=== PATIENT | male | born 1930 | race Caucasian/White ===

== ENCOUNTER 2016-05-02 11:41 | Inpatient (IN) | payer MEDICARE, BC ==
[2016-05-02] VITALS (7 sets, daily range): BP systolic 110–156; BP diastolic 72–93; PULSE 80–96; RESP 16–20; TEMP 97.7–97.8; O2SAT 95–100
[~2016-05-02] VITALS: Ht 182.9 cm; Wt 79.3 kg
[~2016-05-02 11:41] MED LIST: MSIR15 PO; TOPI50TA4 PO; ULTR50TA PO; WARF5TAB PO
[2016-05-02] MEDS ORDERED: HYDR-3535 PO (12:15)
[2016-05-02] MEDS ORDERED: MSIR15 PO (12:15)
[2016-05-02] MEDS ORDERED: FLUO10CA5 PO (12:15)
[2016-05-02] MEDS ORDERED: TOPA50TA7 PO (12:15)
--- NOTE | 2016-05-02 12:22 | PD ---
HPI Chief Complaint: Fall Time Seen by Provider: 12:19 Travel History International Travel<30 days: No Contact w/Intl Traveler<30days: No Traveled to known affect area: No History of Present Illness HPI Patient is an 85-year-old male who presented to emergency department with his for evaluation of a contusion to his left forehead. states that he fell this morning. She states that he is a history of dementia and falls frequently. She reports increased confusion over the last several days. Patient has not vomited. Patient was on Coumadin but that was discontinued 2-3 weeks ago per her report. It is uncertain whether patient lost consciousness after the fall. PFSH Past Medical History Arthritis: Yes Blood Disorders: No Anxiety: No Depression: No Cancer: No Cardiovascular Problems: Yes (PACEMAKER ([employer])) High Cholesterol: Yes Chest Pain: Yes Congestive Heart Failure: No COPD: No Cerebrovascular Accident: Yes Dementia: Yes Diabetes: No Diminished Hearing: No Endocrine: No Gastrointestinal Disorders: Yes (OCC GERD) GERD: Yes Genitourinary: No Headaches: Yes Hepatitis: No Hiatal Hernia: No Immune Disorder: No Musculoskeletal: Yes (ARTHRITIS, BACK, CHRONIC SHOULDER/NECK/SCAPULAR PAIN, DEGENERATIVE DISC DIS) Neurologic: Yes (DIZZINESS, CHRONIC HEADACHE) Psychiatric: No Reproductive: No Respiratory: No Immunizations Current: Yes Migraines: No Seizures: No Sleep Apnea: No Thyroid Disease: No Ulcer: No Tetanus Vaccination: < 5 Years ?: Not Past Surgical History Abdominal Surgery: No AICD: No Body Medical Devices: N/A Cardiac Surgery: Yes (CARDIAC CATH, PACEMAKER) Ear Surgery: No Endocrine Surgery: No Eye Surgery: Yes (BILAT CATARACT EXTRACT.) Genitourinary Surgery: No Joint Replacement: Yes (LEFT SHOULDER) Oral Surgery: Yes (TONSILLECTOMY) Pacemaker: Yes (MEDTRONIC) Thoracic Surgery: Yes Tonsillectomy: Yes Other Surgery: Yes (SINUS ) Social History Alcohol Use: Yes (cocktail DAILY) Tobacco Use: No Substance Use: No Allergies-Medications (Allergen,Severity, Reaction): Coded Allergies: No Known Allergies (Verified , 05/02/16) Reported Meds & Prescriptions Reported Meds & Active Scripts Active Reported Lortab (Hydrocodone-Acetaminophen) 10-325 Mg Tab 1 Tab PO BID PRN Fluoxetine (Fluoxetine HCl) 10 Mg Cap 10 Mg PO DAILY Topamax (Topiramate) 50 Mg Tab 50 Mg PO TID Morphine IR (Morphine Sulfate) 15 Mg Tab 15 Mg PO TID PRN Review of Systems ROS Limitations: Poor Historian Except as stated in HPI: all other systems reviewed are Neg Skin: Positive Other (contusion to forehead) Neurologic: Positive: Other (dementia) Physical Exam Narrative GENERAL: Well-developed, well-nourished, elderly male. Resting comfortably in no acute distress. SKIN: Warm and dry. HEAD: Contusion to left forehead over left eyebrow. Normocephalic. EYES: Pupils equal and round. No scleral icterus. No injection or drainage. Extraocular movements are intact. ENT: No nasal bleeding or discharge. Mucous membranes pink and moist. NECK: Trachea midline. No JVD. CARDIOVASCULAR: Regular rate and rhythm. 2/6 systolic murmur. No peripheral edema noted. RESPIRATORY: No accessory muscle use. Clear to auscultation. Breath sounds equal bilaterally. GASTROINTESTINAL: Abdomen soft, non-tender, nondistended. Hepatic and splenic margins not palpable. MUSCULOSKELETAL: No obvious deformities. No clubbing. No cyanosis. No edema. NEUROLOGICAL: Awake and alert. Oriented to self only. No obvious cranial nerve deficits. Motor grossly within normal limits. Normal speech. PSYCHIATRIC: Appropriate mood and affect; insight and judgment impaired. Data Data Last Documented VS Vital Signs Date Time Temp Pulse Resp B/P Pulse Ox O2 Delivery O2 Flow Rate FiO2 05/02/16 13:54 91 18 144/89 98 Room Air 05/02/16 11:52 97.7 Orders Electrocardiogram (05/02/16 12:16) Prothrombin Time / Inr (Pt) (05/02/16 12:16) Act Partial Throm Time (Ptt) (05/02/16 12:16) Complete Blood Count With Diff (05/02/16 12:16) Comprehensive Metabolic Panel (05/02/16 12:16) Urinalysis - C+S If Indicated (05/02/16 12:16) Ct Brain W/O Iv Contrast(Rout) (05/02/16 12:16) Ecg Monitoring (05/02/16 12:16) Iv Access Insert/Monitor (05/02/16 12:16) Oximetry (05/02/16 12:16) Cath For Specimen (05/02/16 12:16) Blood Glucose (05/02/16 12:16) Neuro Checks . ORDERED (05/02/16 13:53) Consult Neurosurgery (05/02/16 ) Admit To Inpatient (05/02/16 ) Vital Signs (Adult) Q4H (05/02/16 14:02) Activity Oob With Assistance (05/02/16 14:02) Intake + Output URI.QSHIFT (05/02/16 14:02) Diet Heart Healthy (05/02/16 Dinner) Sodium Chloride 0.9% Flush (Ns Flush) (05/02/16 14:15) Sodium Chloride 0.9% Flush (Ns Flush) (05/02/16 21:00) Acetaminophen (Tylenol) (05/02/16 14:15) Ondansetron Inj (Zofran Inj) (05/02/16 14:15) Bisacodyl Supp (Dulcolax Supp) (05/02/16 14:15) Docusate Sodium (Colace) (05/02/16 14:15) Basic Metabolic Panel (Bmp) (05/03/16 06:00) Scd Bilateral/Knee High URI.BID (05/02/16 14:02) Naloxone Inj (Narcan Inj) (05/02/16 14:15) Inpatient Certification (05/02/16 ) Admit Order (Ed Use Only) (05/02/16 14:06) Labs Laboratory Tests Test 05/02/16 05/02/16 12:43 12:50 White Blood Count 8.0 TH/MM3 Red Blood Count 4.03 MIL/MM3 Hemoglobin 13.1 GM/DL Hematocrit 39.0 % Mean Corpuscular Volume 96.9 FL Mean Corpuscular Hemoglobin 32.6 PG Mean Corpuscular Hemoglobin 33.7 % Concent Red Cell Distribution Width 13.6 % Platelet Count 171 TH/MM3 Mean Platelet Volume 7.0 FL Neutrophils (%) (Auto) 67.8 % Lymphocytes (%) (Auto) 22.3 % Monocytes (%) (Auto) 8.1 % Eosinophils (%) (Auto) 1.1 % Basophils (%) (Auto) 0.7 % Neutrophils # (Auto) 5.4 TH/MM3 Lymphocytes # (Auto) 1.8 TH/MM3 Monocytes # (Auto) 0.6 TH/MM3 Eosinophils # (Auto) 0.1 TH/MM3 Basophils # (Auto) 0.1 TH/MM3 CBC Comment DIFF FINAL Differential Comment Prothrombin Time 12.1 SEC Prothromb Time International 1.1 RATIO Ratio Activated Partial 29.0 SEC Thromboplast Time Sodium Level 142 MEQ/L Potassium Level 3.8 MEQ/L Chloride Level 110 MEQ/L Carbon Dioxide Level 21.5 MEQ/L Anion Gap 11 MEQ/L Blood Urea Nitrogen 11 MG/DL Creatinine 0.92 MG/DL Estimat Glomerular Filtration 78 ML/MIN Rate Random Glucose 79 MG/DL Calcium Level 8.1 MG/DL Total Bilirubin 0.4 MG/DL Aspartate Amino Transf 33 U/L (AST/SGOT) Alanine Aminotransferase 24 U/L (ALT/SGPT) Alkaline Phosphatase 124 U/L Total Protein 7.8 GM/DL Albumin 3.4 GM/DL Urine Color YELLOW Urine Turbidity CLEAR Urine pH 6.0 Urine Specific [place] 1.012 Urine Protein NEG mg/dL Urine Glucose (UA) NEG mg/dL Urine Ketones NEG mg/dL Urine Occult Blood TRACE Urine Nitrite NEG Urine Bilirubin NEG Urine Leukocyte Esterase NEG Urine RBC 0-3 /hpf Urine WBC 0-2 /hpf Urine Mucus RARE /lpf Microscopic Urinalysis Comment CATH-CULT NOT IND MDM Medical Decision Making Medical Screen Exam Complete: Yes Emergency Medical Condition: Yes Interpretation(s) Vital Signs Date Time Temp Pulse Resp B/P Pulse Ox O2 Delivery O2 Flow Rate FiO2 05/02/16 11:52 97.7 80 16 110/72 100 Differential Diagnosis Hemorrhage versus contusion versus urinary tract infection versus orthostatic hypotension versus electrolyte abnormality versus cardiac arrhythmia versus other Narrative Course Patient is an 85-year-old male brought in by his for evaluation of a contusion to his left forehead after he sustained a mechanical fall at home this morning. Fall was unwitnessed, is unsure of loss of consciousness. Patient has baseline dementia and is a poor historian. There is an obvious contusion to the left forehead. Labs and imaging ordered and pending. Patient placed on telemetry monitoring, IV access initiated. CT scan of the brain shows acute intraventricular bleed on the right. Dr. Ernst was paged for consult. No obvious neurological deficits noted at this time. Again patient has dementia and is only oriented to self, mentation appears at baseline. EKG shows A. fib with right bundle-branch block, right bundle branch block was present on previous EKG. Discussed with Dr. Ernst who stated that the bleed appears subacute in nature at least a few days old to a week. She recommended patient be transferred to the main [facility], admitted to medicine with consults to neurology, cardiology and neurosurgery. Discussed with Dr. Watson who accepted admission. Patient will be transferred to the [facility]. is at bedside and was advised of findings as well as treatment plan. would like patient to be placed either in rehabilitation for long-term care. Patient's vital signs remained stable. Diagnosis Primary Impression: Intraventricular hemorrhage Additional Impressions: Dementia Qualified Code: F03.91 - Dementia with behavioral disturbance, unspecified dementia type Contusion Qualified Code: S00.83XA - Contusion of other part of head, initial encounter Atrial fibrillation Qualified Code: I48.91 - Atrial fibrillation, unspecified type Admitting Information Admitting Physician Requests: Admit Condition: Stable Bela Dutta May 02, 2016 12:22
[2016-05-02 12:46] LABS: AUTOMATED NEUTROPHIL # 5.4 TH/MM3 (1.8-7.7); BASOPHIL # 0.1 TH/MM3 (0-0.2); BASOPHIL % 0.7 % (0.0-2.0); EOSINOPHIL # 0.1 TH/MM3 (0-0.4); EOSINOPHIL % 1.1 % (0.0-4.0); HEMO FLAGS DIFF FINAL; LYMPH % 22.3 % (9.0-44.0); LYMPHOCYTE # 1.8 TH/MM3 (1.0-4.8); MEAN CELL VOLUME 96.9 FL (80.0-100.0); MEAN CORPUSCULAR HEMOGLOBIN 32.6 PG (27.0-34.0); MEAN CORPUSCULAR HGB CONC 33.7 % (32.0-36.0); MONO % 8.1 % (0.0-8.0); NEUT % 67.8 % (16.0-70.0); PLATELET COUNT 171 TH/MM3 (150-450); RED BLOOD COUNT 4.03 MIL/MM3 (4.50-5.90); RED CELL DISTRIBUTION WIDTH 13.6 % (11.6-17.2)
[2016-05-02 12:56] LABS: CHLORIDE 110 MEQ/L (98-107); POTASSIUM 3.8 MEQ/L (3.5-5.1); SODIUM (NA) 142 MEQ/L (136-145)
[2016-05-02 12:56] LABS: BLOOD, URINE TRACE (NEG); GLUCOSE,URINE NEG (NEG); KETONE, URINE NEG (NEG); NITRITE,URINE NEG (NEG)
[2016-05-02 13:00] LABS: INTERNATIONAL NORMALIZED RATIO 1.1 RATIO; PROTHROMBIN TIME - PATIENT 12.1 SEC (9.8-11.6)
[2016-05-02 13:00] LABS: URINE COLOR YELLOW (YELLW/STRAW)
[2016-05-02 13:01] LABS: ANION GAP 11 MEQ/L (5-15); BICARBONATE 21.5 MEQ/L (21.0-32.0); BLOOD UREA NITROGEN 11 MG/DL (7-18)
[2016-05-02 13:03] LABS: COMMENT (UR) CATH-CULT NOT IND; CULTURE IF INDICATED CATH CULTURE NOT IND; MUCUS URINE RARE /lpf (OCC); RBC, URINE 0-3 /hpf (0-3); WBC, URINE 0-2 /hpf (0-5)
[2016-05-02 13:04] LABS: ALT (GPT) 24 U/L (12-78); AST (GOT) 33 U/L (15-37); GLOMERULAR FILTRATION RATE 78 ML/MIN (>89)
[2016-05-02 13:05] LABS: TOTAL BILIRUBIN ADULT 0.4 MG/DL (0.2-1.0)
[2016-05-02 13:06] LABS: ALKALINE PHOSPHATASE 124 U/L (45-117)
--- NOTE | 2016-05-02 14:02 | RADHPO ---
EXAM DATE/TIME: 05/02/2016 13:29 [place] COMPARISON: CT BRAIN W/O CONTRAST, January 17, 2012, 9:52. INDICATIONS: Fell last night. Left frontal contusion. RADIATION DOSE: 64.20 CTDIvol (mGy) MEDICAL HISTORY: Cerebrovascular disease. Cardiovascular disease SURGICAL HISTORY: Pacemaker. ENCOUNTER: Initial ACUITY: 2 days PAIN SCALE: 3/10 LOCATION: Left frontal TECHNIQUE: Multiple contiguous axial images were obtained of the head. Using automated exposure control and adj ustment of the mA and/or kV according to patient size, radiation dose was kept as low as reasonably a chievable to obtain optimal diagnostic quality images. FINDINGS: There is acute intraventricular hemorrhage within the atrium of the right lateral ventricle. There is a large subgaleal hematoma along the left frontal skull. No underlying acute subdural or epidural he matoma is noted. Scattered periventricular and subcortical white matter small vessel ischemic changes are note d bilaterally. The ventricles, sulci, and cisterns are stable . CONCLUSION: 1. Acute intraventricular hemorrhage within the atrium of the right lateral ventricle. 2. Stable periventricular and subcortical white matter small vessel ischemic changes bilaterally. 3. Stable cerebral atrophy. 4. Subgaleal hematoma along the left frontal skull. NIRAJ Joseph was called immediately with the findings of examination at 1:50 p.m. on 05/02/16. Arjun Grossman MD on May 02, 2016 at 13:43 Board Certified Radiologist. This report was verified electronically.
--- NOTE | 2016-05-02 14:09 | PD ---
Physical Exam Narrative Patient was seen and examined with my physiotherapist's assistant. Data Data Last Documented VS Vital Signs Date Time Temp Pulse Resp B/P Pulse Ox O2 Delivery O2 Flow Rate FiO2 05/02/16 13:54 91 18 144/89 98 Room Air 05/02/16 11:52 97.7 Orders Electrocardiogram (05/02/16 12:16) Prothrombin Time / Inr (Pt) (05/02/16 12:16) Act Partial Throm Time (Ptt) (05/02/16 12:16) Complete Blood Count With Diff (05/02/16 12:16) Comprehensive Metabolic Panel (05/02/16 12:16) Urinalysis - C+S If Indicated (05/02/16 12:16) Ct Brain W/O Iv Contrast(Rout) (05/02/16 12:16) Ecg Monitoring (05/02/16 12:16) Iv Access Insert/Monitor (05/02/16 12:16) Oximetry (05/02/16 12:16) Cath For Specimen (05/02/16 12:16) Blood Glucose (05/02/16 12:16) Neuro Checks . ORDERED (05/02/16 13:53) Consult Neurosurgery (05/02/16 ) Admit To Inpatient (05/02/16 ) Vital Signs (Adult) Q4H (05/02/16 14:02) Activity Oob With Assistance (05/02/16 14:02) Intake + Output URI.QSHIFT (05/02/16 14:02) Diet Heart Healthy (05/02/16 Dinner) Sodium Chloride 0.9% Flush (Ns Flush) (05/02/16 14:15) Sodium Chloride 0.9% Flush (Ns Flush) (05/02/16 21:00) Acetaminophen (Tylenol) (05/02/16 14:15) Ondansetron Inj (Zofran Inj) (05/02/16 14:15) Bisacodyl Supp (Dulcolax Supp) (05/02/16 14:15) Docusate Sodium (Colace) (05/02/16 14:15) Basic Metabolic Panel (Bmp) (05/03/16 06:00) Scd Bilateral/Knee High URI.BID (05/02/16 14:02) Naloxone Inj (Narcan Inj) (05/02/16 14:15) Inpatient Certification (05/02/16 ) Labs Laboratory Tests Test 05/02/16 05/02/16 12:43 12:50 White Blood Count 8.0 TH/MM3 Red Blood Count 4.03 MIL/MM3 Hemoglobin 13.1 GM/DL Hematocrit 39.0 % Mean Corpuscular Volume 96.9 FL Mean Corpuscular Hemoglobin 32.6 PG Mean Corpuscular Hemoglobin 33.7 % Concent Red Cell Distribution Width 13.6 % Platelet Count 171 TH/MM3 Mean Platelet Volume 7.0 FL Neutrophils (%) (Auto) 67.8 % Lymphocytes (%) (Auto) 22.3 % Monocytes (%) (Auto) 8.1 % Eosinophils (%) (Auto) 1.1 % Basophils (%) (Auto) 0.7 % Neutrophils # (Auto) 5.4 TH/MM3 Lymphocytes # (Auto) 1.8 TH/MM3 Monocytes # (Auto) 0.6 TH/MM3 Eosinophils # (Auto) 0.1 TH/MM3 Basophils # (Auto) 0.1 TH/MM3 CBC Comment DIFF FINAL Differential Comment Prothrombin Time 12.1 SEC Prothromb Time International 1.1 RATIO Ratio Activated Partial 29.0 SEC Thromboplast Time Sodium Level 142 MEQ/L Potassium Level 3.8 MEQ/L Chloride Level 110 MEQ/L Carbon Dioxide Level 21.5 MEQ/L Anion Gap 11 MEQ/L Blood Urea Nitrogen 11 MG/DL Creatinine 0.92 MG/DL Estimat Glomerular Filtration 78 ML/MIN Rate Random Glucose 79 MG/DL Calcium Level 8.1 MG/DL Total Bilirubin 0.4 MG/DL Aspartate Amino Transf 33 U/L (AST/SGOT) Alanine Aminotransferase 24 U/L (ALT/SGPT) Alkaline Phosphatase 124 U/L Total Protein 7.8 GM/DL Albumin 3.4 GM/DL Urine Color YELLOW Urine Turbidity CLEAR Urine pH 6.0 Urine Specific [place] 1.012 Urine Protein NEG mg/dL Urine Glucose (UA) NEG mg/dL Urine Ketones NEG mg/dL Urine Occult Blood TRACE Urine Nitrite NEG Urine Bilirubin NEG Urine Leukocyte Esterase NEG Urine RBC 0-3 /hpf Urine WBC 0-2 /hpf Urine Mucus RARE /lpf Microscopic Urinalysis Comment CATH-CULT NOT IND MDM Supervised Visit with DANDRE: Yes Narrative Course Patient had several falls this week including last night. CT shows intracranial hemorrhage. Patient was admitted to medical service with neurosurgical consultation. Michael Schaefer MD May 02, 2016 14:09
[2016-05-02] MEDS ORDERED: ACETAMINOPHEN 325 MG TAB PO PRN (14:15)
[2016-05-02] MEDS ORDERED: SODIUM CHLORIDE 0.9% FLUSH 5 ML FLUSH FLUSH PRN (14:15)
[2016-05-02] MEDS ORDERED: NALOXONE HCL 0.4 MG/ML AMP IV PRN (14:15)
[2016-05-02] MEDS ORDERED: ONDANSETRON HCL 4 MG/2 ML VIAL IVP PRN (14:15)
[2016-05-02] MEDS ORDERED: BISACODYL 10 MG SUPP PR PRN (14:15)
[2016-05-02] MEDS: DOCUSATE SODIUM 100 MG CAP PO SCH ×2 (14:35→21:00)
[2016-05-02] MEDS: SODIUM CHLORIDE 0.9% FLUSH 5 ML FLUSH FLUSH SCH (21:00)
[2016-05-03] VITALS (8 sets, daily range): BP systolic 120–147; BP diastolic 64–87; PULSE 37–84; RESP 17–18; TEMP 95.9–98.6; O2SAT 96–98
[2016-05-03 08:16] LABS: BICARBONATE 20.2 MEQ/L (21.0-32.0); POTASSIUM 3.4 MEQ/L (3.5-5.1)
--- NOTE | 2016-05-03 08:48 | HHI.HP ---
[facility] Ronny Little M.D. Admission Diagnosis CVA, interventricular bleed, subacute, dementia, falls Diagnoses: (1) Intraventricular hemorrhage Diagnosis: Principal (2) Fall at home (3) Atrial fibrillation (4) Hypokalemia (5) GERD (gastroesophageal reflux disease) (6) Dementia Chief Complaint: Fall Travel History International Travel<30 Days: No Contact w/Intl Traveler <30 Da: No Traveled to Known Affected Are: No History of Present Illness The patient is an 85-year-old male with history of dementia who reportedly fell at home a few days ago. He states that he hit his forehead on concrete. He does have baseline confusion and is a poor historian overall. He states that he has been falling more recently. He reports that the last 2-3 weeks he has been more dizzy and lightheaded. Denies chest pain or dyspnea. He reports pain and numbness in both hands, but states that this has been present for a couple months. Review of Systems ROS Limitations: Poor Historian Constitutional: DENIES: Fever, Chills, Night Sweats Eyes: DENIES: Blurred vision, Vision loss Ears, nose, mouth, throat: DENIES: Hearing loss Respiratory: DENIES: Cough, Wheezing, Sputum production, Shortness of breath Cardiovascular: DENIES: Chest pain, Palpitations, Dyspnea on Exertion, Lower Extremity Edema Gastrointestinal: DENIES: Abdominal pain, Constipation, Diarrhea, Nausea, Vomiting Genitourinary: DENIES: Urinary frequency, Urinary incontinence, Urgency, Hematuria, Dysuria, Nocturia Musculoskeletal: DENIES: Joint pain, Muscle aches Integumentary: DENIES: Pruritus, Rash Hematologic/lymphatic: DENIES: Bruising Neurologic: DENIES: Headache Past Family Social History Past Medical History Arthritis Hyperlipidemia History of CVA GERD Degenerative disc disease Dementia Past Surgical History Cardiac catheterization Pacemaker placement Bilateral cataract surgery Left shoulder surgery Tonsillectomy Sinus surgery Reported Medications Lortab (Hydrocodone-Acetaminophen) 10-325 Mg Tab 1 Tab PO BID PRN Fluoxetine (Fluoxetine HCl) 10 Mg Cap 10 Mg PO DAILY Topamax (Topiramate) 50 Mg Tab 50 Mg PO TID Morphine IR (Morphine Sulfate) 15 Mg Tab 15 Mg PO TID PRN Allergies: Coded Allergies: No Known Allergies (Verified , 05/02/16) Family History Denies Social History Drinks one cocktail daily. Denies tobacco or illicit drug use. Physical Exam Vital Signs Vital Signs Date Time Temp Pulse Resp B/P Pulse Ox O2 Delivery O2 Flow Rate FiO2 05/03/16 05:24 97.5 78 17 125/75 96 05/02/16 23:00 97.8 92 17 147/85 98 05/02/16 20:40 96 20 156/89 95 Room Air 05/02/16 17:53 90 20 132/80 98 05/02/16 16:26 90 20 136/93 98 Room Air 05/02/16 14:00 78 99 Room Air 05/02/16 13:54 91 18 144/89 98 Room Air 05/02/16 12:27 85 18 139/82 100 Room Air 05/02/16 11:52 97.7 80 16 110/72 100 Physical Exam GENERAL: Elderly male in no acute distress. HEENT: Hematoma on the forehead above the left eye. Pupils reactive. Extraocular movements intact. No scleral icterus. No injection or drainage. Oropharynx is clear. Mucous membranes are moist. CARDIOVASCULAR: Irregular rhythm with 2/6 systolic murmur. RESPIRATORY: Clear to auscultation. No wheezes, rales, or rhonchi. Breathing is non-labored. GASTROINTESTINAL: Abdomen soft, non-tender, nondistended. EXTREMITIES: No lower extremity edema. No calf tenderness. PSYCH: Alert and oriented x 3. Laboratory Laboratory Tests Test 05/02/16 05/02/16 05/03/16 12:43 12:50 06:01 White Blood Count 8.0 Red Blood Count 4.03 Hemoglobin 13.1 Hematocrit 39.0 Mean Corpuscular Volume 96.9 Mean Corpuscular Hemoglobin 32.6 Mean Corpuscular Hemoglobin 33.7 Concent Red Cell Distribution Width 13.6 Platelet Count 171 Mean Platelet Volume 7.0 Neutrophils (%) (Auto) 67.8 Lymphocytes (%) (Auto) 22.3 Monocytes (%) (Auto) 8.1 Eosinophils (%) (Auto) 1.1 Basophils (%) (Auto) 0.7 Neutrophils # (Auto) 5.4 Lymphocytes # (Auto) 1.8 Monocytes # (Auto) 0.6 Eosinophils # (Auto) 0.1 Basophils # (Auto) 0.1 CBC Comment DIFF FINAL Differential Comment Prothrombin Time 12.1 Prothromb Time International 1.1 Ratio Activated Partial 29.0 Thromboplast Time Sodium Level 142 139 Potassium Level 3.8 3.4 Chloride Level 110 107 Carbon Dioxide Level 21.5 20.2 Anion Gap 11 12 Blood Urea Nitrogen 11 15 Creatinine 0.92 0.97 Estimat Glomerular Filtration 78 73 Rate Random Glucose 79 72 Calcium Level 8.1 8.9 Total Bilirubin 0.4 Aspartate Amino Transf 33 (AST/SGOT) Alanine Aminotransferase 24 (ALT/SGPT) Alkaline Phosphatase 124 Total Protein 7.8 Albumin 3.4 Urine Color YELLOW Urine Turbidity CLEAR Urine pH 6.0 Urine Specific [place] 1.012 Urine Protein NEG Urine Glucose (UA) NEG Urine Ketones NEG Urine Occult Blood TRACE Urine Nitrite NEG Urine Bilirubin NEG Urine Leukocyte Esterase NEG Urine RBC 0-3 Urine WBC 0-2 Urine Mucus RARE Microscopic Urinalysis Comment CATH-CULT NOT IND Result Diagram: 05/02/16 1243 05/03/16 0601 Imaging Last Impressions Head CT 05/02/16 1216 Signed Impressions: Service Date/Time: Monday, May 02, 2016 13:29 - CONCLUSION: 1. Acute intraventricular hemorrhage within the atrium of the right lateral ventricle. 2. Stable periventricular and subcortical white matter small vessel ischemic changes bilaterally. 3. Stable cerebral atrophy. 4. Subgaleal hematoma along the left frontal skull. NIRAJ Joseph was called immediately with the findings of examination at 1:50 p.m. on 05/02/16. Arjun Grossman MD Assessment and Plan Assessment and Plan 1. Intracranial hemorrhage: Patient has had multiple falls at home recently. Hold anticoagulation. Neurosurgery consultation is pending. Consult neurology. Physical therapy evaluation. 2. Atrial fibrillation: Monitor on telemetry. Rate is currently controlled. Consider cardiology consult. Check echocardiogram. 3. Dementia: Stable, apparently at baseline. 4. Mild hypokalemia: Supplement potassium. 5. GERD: PPI. 6. DVT prophylaxis: SCDs, MICHELLE hose. Avoid chemical prophylaxis secondary to intracranial hemorrhage. Problem Qualifiers (1) Atrial fibrillation: Qualified Code: I48.91 - Atrial fibrillation, unspecified type (2) Dementia: Qualified Code: F03.91 - Dementia with behavioral disturbance, unspecified dementia type Tamir Lopez MD May 03, 2016 08:48
[2016-05-03] MEDS ORDERED: POTASSIUM CHLORIDE 20 MEQ CONTROLLED RELEASE TAB PO ONE (09:00)
[2016-05-03] MEDS: PANTOPRAZOLE SOD 20 MG DELAYED RELEASE TAB PO SCH (10:56)
[2016-05-03] MEDS: TOPIRAMATE 25 MG TAB PO SCH ×3 (10:56→20:23)
[2016-05-03] MEDS: FLUoxetine HCL 10 MG CAP PO SCH (10:56)
[2016-05-03] MEDS: SODIUM CHLORIDE 0.9% FLUSH 5 ML FLUSH FLUSH SCH ×2 (10:57→21:00)
[2016-05-03] MEDS: DOCUSATE SODIUM 100 MG CAP PO SCH ×2 (10:57→21:00)
--- NOTE | 2016-05-03 11:15 | PD.CONS ---
History of Present Illness Service Neurology Consult Requested By medical Reason for Consult dementia, falls Primary Care Physician Ronny Little M.D. History of Present Illness 85-year-old male with history of dementia , chronic pain syndrome on morphine and topamax admitted for left forehead contusion. he uses a walker to ambulate with. has had slowly progressive decline in memory and mobility. is his caregiver and she was a former [employer] driver. has afib and was on coumadin but it was stopped recently. ct brain- tiny rt ivh in occipital horn denies any [place]/neck pain/vision loss/focal weakness. Review of Systems as above and admit hp Past Family Social History Past Medical History Arthritis Hyperlipidemia History of CVA GERD Degenerative disc disease Dementia Past Surgical History Cardiac catheterization Pacemaker placement Bilateral cataract surgery Left shoulder surgery Tonsillectomy Sinus surgery Reported Medications Lortab (Hydrocodone-Acetaminophen) 10-325 Mg Tab 1 Tab PO BID PRN Fluoxetine (Fluoxetine HCl) 10 Mg Cap 10 Mg PO DAILY Topamax (Topiramate) 50 Mg Tab 50 Mg PO TID Morphine IR (Morphine Sulfate) 15 Mg Tab 15 Mg PO TID PRN Allergies: Coded Allergies: No Known Allergies (Verified , 05/02/16) Family History Denies Social History Drinks one cocktail daily. Denies tobacco or illicit drug use. Review of Systems All other ROS: ROS reviewed as documented in chart Past Family Social History Allergies: Coded Allergies: No Known Allergies (Verified , 05/02/16) Active Ordered Medications Current Medications Medications (Trade) Dose Ordered Sig/Mark [place] Route Start Time Stop Time Status Last Admin (NS Flush) 2 ml UNSCH PRN FLUSH 05/02/16 14:15 (NS Flush) 2 ml BID FLUSH 05/02/16 21:00 05/03/16 10:57 (Tylenol) 650 mg Q4H PRN PO 05/02/16 14:15 (Zofran Inj) 4 mg Q6H PRN IVP 05/02/16 14:15 (Dulcolax Supp) 10 mg DAILY PRN PA 05/02/16 14:15 (Colace) 100 mg Q12HR PO 05/02/16 14:30 05/03/16 10:57 (Narcan Inj) 0.4 mg UNSCH PRN IV 05/02/16 14:15 (Protonix) 20 mg DAILY PO 05/03/16 09:00 05/03/16 10:56 (PROzac) 10 mg DAILY PO 05/03/16 09:00 05/03/16 10:56 (Topamax) 50 mg TID PO 05/03/16 09:00 05/03/16 10:56 Exam I&O / VS 05/02/16 05/02/16 05/03/16 15:00 23:00 07:00 Intake Total 120 ml Output Total 300 ml 250 ml Balance -300 ml -130 ml Intake Oral 120 ml Output Urine Total 300 ml 250 ml # Voids 1 Vital Signs Date Time Temp Pulse Resp B/P Pulse Ox O2 Delivery O2 Flow Rate FiO2 05/03/16 08:00 95.9 76 18 147/87 98 05/03/16 05:24 97.5 78 17 125/75 96 05/02/16 23:00 97.8 92 17 147/85 98 05/02/16 20:40 96 20 156/89 95 Room Air 05/02/16 17:53 90 20 132/80 98 05/02/16 16:26 90 20 136/93 98 Room Air 05/02/16 14:00 78 99 Room Air 05/02/16 13:54 91 18 144/89 98 Room Air 05/02/16 12:27 85 18 139/82 100 Room Air 05/02/16 11:52 97.7 80 16 110/72 100 Neurologic: Alert Psychiatric: Cooperative Exam Comments alert, ox 1. knows he is [place] but not exact place or date. follows, recognizes his . eomi, vff grossly full, face sym, ou 3-2mm, mcintyre to gravity , msr 1+, no clonus, planter flexor response Review/Management Diagnosis/Plan: (1) Dementia Plan: possibly vascular/alz gait d/o likely multifactorial- related to dementia/generalized arthritis/ visual acuity, perception recs on chronic opiods for pain control. will worsen memory but apparently needs it for pain control. eeg check b12/ths may benefit from inpt rehab d/w pt/spouse (2) Intraventricular hemorrhage Plan: observation no OAC 2/2 ivh and falls (3) Atrial fibrillation Plan: paced (4) Postlaminectomy syndrome, lumbar Plan: see's pain md outpatient Problem Qualifiers (1) Dementia: Qualified Code: F03.91 - Dementia with behavioral disturbance, unspecified dementia type (2) Atrial fibrillation: Qualified Code: I48.91 - Atrial fibrillation, unspecified type Hiram Brooks MD May 03, 2016 11:15
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
--- NOTE | 2016-05-03 19:01 | EC ---
Study Study Date:05/03/2016 STUDY CONCLUSIONS SUMMARY - Procedure narrative: Image quality was poor. The study was technically limited due to poor acoustic window availability. Scanning was performed from the subcostal acoustic window only. - Left ventricle: Systolic function is not able to be determined from this echocardiogram. There is only one view, and it shows relatively normal wall motion, but unable to assess without further views. Images were inadequate for LV wall motion assessment. If LV function is below 40, please consider prescribing an ACEI or ARB or document rationale for non-use. PROCEDURE DATA STUDY STATUS: Elective. Procedure: Transthoracic echocardiography. Image quality was poor. The study was technically limited due to poor acoustic window availability. Scanning was performed from the subcostal acoustic windows. Study completion: The patient tolerated the procedure well. Transthoracic echocardiography. M-mode, complete 2D, complete spectral Doppler, and color Doppler. Height: Height: 72in. Weight: Weight: 172.6lb. Body mass index: BMI: 23.5kg/m^2. Body surface area: BSA: 2m^2. Patient status: Inpatient. CARDIAC ANATOMY LEFT VENTRICLE: Systolic function is not able to be determined from this echocardiogram. There is only one view, and it shows relatively normal wall motion, but unable to assess without further views. Images were inadequate for LV wall motion assessment. AORTIC VALVE: Doppler: No significant regurgitation. MITRAL VALVE: Doppler: No significant regurgitation. TRICUSPID VALVE: Doppler: Trace regurgitation. Patient weight: 172.6lb _Ejection fraction:_ 65-75% _Fractional shortening:_ 32% up to 5Kg 5-11.5Kg 11.6-22.9Kg 23-45Kg 45-57Kg Aortic Root 7-13 <17 13-22 17-27 17-27 LA diam 6-13 <23 24-38 33-47 37-40 RVID 10-17 7-15 7-15 7-18 8-17 LVIDd 12-22 <32 24-38 33-47 37-40 LVPW 2-4 3-6 5-7 6-8 7-8 IVS 2-4 3-6 5-7 6-8 7-8 DOPPLER MEASUREMENTS ADULT NORMAL Tricuspid valve Regurgitant peak velocity 178 cm/s Peak RV-RA gradient, S 13 mm Hg Maximal regurgitant velocity 178 cm/s LEGEND: Mean values are shown as u=mean value. Asterisk (*) ramirez values outside specified normal range. Prepared and signed by Sky Alvarez [id number]
[2016-05-04 05:00] VITALS: BP 138/77; PULSE 70; RESP 17; TEMP 97.7; O2SAT 98
[2016-05-04 08:00] VITALS: BP 139/86; PULSE 78; RESP 19; TEMP 96.1; O2SAT 97
[2016-05-04 08:05] VITALS: PULSE 82
--- NOTE | 2016-05-04 08:07 | HHI.PR ---
Review/Management Diagnosis/Plan: (1) Dementia Plan: possibly vascular/alz gait d/o likely multifactorial- related to dementia/generalized arthritis/ visual acuity, perception recs neuro stable on chronic opiods for pain control. will worsen memory but apparently needs it for pain control. eeg-pending check b12/tsh- nml may benefit from inpt rehab (2) Intraventricular hemorrhage Plan: observation no OAC 2/2 ivh and falls (3) Atrial fibrillation Plan: paced (4) Postlaminectomy syndrome, lumbar Plan: see's pain [place] outpatient Subjective Subjective Comments No acute events reported No headache No chest pain No dyspnea Active Medications Current Medications Medications (Trade) Dose Ordered Sig/Mark Anthony Route Start Time Stop Time Status Last Admin (NS Flush) 2 ml UNSCH PRN FLUSH 05/02/16 14:15 (NS Flush) 2 ml BID FLUSH 05/02/16 21:00 05/03/16 21:00 (Tylenol) 650 mg Q4H PRN PO 05/02/16 14:15 (Zofran Inj) 4 mg Q6H PRN IVP 05/02/16 14:15 (Dulcolax Supp) 10 mg DAILY PRN DC 05/02/16 14:15 (Colace) 100 mg Q12HR PO 05/02/16 14:30 05/03/16 10:57 (Narcan Inj) 0.4 mg UNSCH PRN IV 05/02/16 14:15 (Protonix) 20 mg DAILY PO 05/03/16 09:00 05/03/16 10:56 (PROzac) 10 mg DAILY PO 05/03/16 09:00 05/03/16 10:56 (Topamax) 50 mg TID PO 05/03/16 09:00 05/03/16 20:23 Allergies Allergies Coded Allergies No Known Allergies (Verified05/02/16) Review of Systems All other ROS: ROS reviewed as documented in chart Exam I&O / VS 05/03/16 05/03/16 05/04/16 15:00 23:00 07:00 Intake Total 500 ml 500 ml Output Total 200 ml 450 ml Balance -200 ml 500 ml 50 ml Intake Oral 500 ml 500 ml Output Urine Total 200 ml 450 ml # Voids 1 # Bowel Movements 1 2 Vital Signs Date Time Temp Pulse Resp B/P Pulse Ox O2 Delivery O2 Flow Rate FiO2 2/8/17 05:00 97.7 70 17 138/77 98 05/03/16 23:45 98.1 66 18 135/80 97 05/03/16 20:45 97.7 69 17 140/84 98 05/03/16 19:00 59 05/03/16 16:17 97.2 37 18 120/64 98 05/03/16 12:00 98.6 80 18 147/78 98 05/03/16 10:00 84 Neurologic: Alert Psychiatric: Cooperative Exam Comments alert, ox 1.calm, knows he is [place] but not exact place or date. follows, eomi, vff grossly full, face sym, ou 3-2mm, mcintyre to gravity, msr 1+, no clonus, planter flexor response Objective Micro and Labs Laboratory Tests Test 05/03/16 14:30 Erythrocyte Sedimentation Rate 29 Vitamin B12 Level 313 Thyroid Stimulating Hormone 0.842 3rd Gen Problem Qualifiers (1) Dementia: Qualified Code: F03.91 - Dementia with behavioral disturbance, unspecified dementia type (2) Atrial fibrillation: Qualified Code: I48.91 - Atrial fibrillation, unspecified type Hiram Brooks MD May 04, 2016 08:07
--- NOTE | 2016-05-04 08:12 | MG ---
cc: HENNA DANIEL Lab No: [id number] Date: Age: 85 Sex: M Hyperventilation not performed. Contusion on the left forehead. Confusion. Protonix. Topamax. DESCRIPTION A symmetric 8 Hz 60 microvolt posterior rhythm is seen. Some mild diffuse theta slowing is occasionally noted to 7 Hz. The recording overall is synchronous and symmetric. No epileptiform or seizure activity is noted. Photic stimulation is performed without significant posterior driving. IMPRESSION Normal awake EEG. No evidence of focal or diffuse abnormality. The patient had a couple of left foot twitches and left leg jerks which did not correlate with any seizure activity. MD TITA Pena/LUNA /7:51 AM /8:07 AM
[2016-05-04] MEDS: DOCUSATE SODIUM 100 MG CAP PO SCH ×2 (09:00→21:00)
--- NOTE | 2016-05-04 10:37 | HHI.NSPN ---
History Chief Complaint: none Interval History 85 yr old presented after multiple falls. He is cognitively progressively more dependent on his . His gait is unsteady and he needs a walker for safety. He has incontinence of stool and urine. His main complaint is a headache. Review of Systems General: Negative for: fever, chills, insomnia Respiratory: Negative for: shortness of breath, cough, sputum Cardiovascular: Negative for: chest pain, palpitations, orthopnea Gastrointestinal: Negative for: nausea, vomitting, diarrhea, constipation Exam Results Vital Signs Date Time Temp Pulse Resp B/P Pulse Ox O2 Delivery O2 Flow Rate FiO2 05/04/16 05:00 97.7 70 17 138/77 98 05/02/16 20:40 Room Air Intake and Output 05/03/16 05/03/16 05/04/16 08:00 16:00 00:00 Intake Total 120 ml 500 ml Output Total 250 ml 200 ml Balance -130 ml -200 ml 500 ml Physical Examination Awake, eyes open, speech fluent, oriented x 1, but knows his Gait shuffling, small steps, leans on the walker and tuns in multiple small steps. Multiple ecchymoses on forehead, back, extremities. Tone increased throughout. EEG showed no encephalopathy and no epileptiform activity but leg twitching evident. Lab, Micro, Other Results Laboratory Tests Test 05/03/16 14:30 Erythrocyte Sedimentation Rate 29 mm/hr Vitamin B12 Level 313 PG/ML Thyroid Stimulating Hormone 0.842 uIU/ML 3rd Gen Medical Decision Making Impression and Plan Intraventricular hemorrhage, progressive cognitive decline. Inpatient rehab is needed for maximizing his ability to perform self care tasks and avoid falls. Follow up in the office after rehab is requested in discharge planning. Total Minutes: 10 Daniel Ernst May 04, 2016 10:37 am
[2016-05-04] MEDS: PANTOPRAZOLE SOD 20 MG DELAYED RELEASE TAB PO SCH (10:57)
[2016-05-04] MEDS: SODIUM CHLORIDE 0.9% FLUSH 5 ML FLUSH FLUSH SCH ×2 (10:57→21:00)
[2016-05-04] MEDS: FLUoxetine HCL 10 MG CAP PO SCH (10:57)
[2016-05-04] MEDS: TOPIRAMATE 25 MG TAB PO SCH ×3 (10:58→18:52)
[2016-05-04 11:15] VITALS: BP 125/62; PULSE 56; RESP 19; TEMP 98.7; O2SAT 100
--- NOTE | 2016-05-04 11:20 | HHI.PR ---
Subjective Remarks Follow up ICH, a-fib. The patient is still reporting headache, but states that it is improving. He reports general weakness in both arms and both legs. He is also having loose stools. Objective Vitals Vital Signs Date Time Temp Pulse Resp B/P Pulse Ox O2 Delivery O2 Flow Rate FiO2 05/04/16 08:00 96.1 78 19 139/86 97 05/04/16 05:00 97.7 70 17 138/77 98 05/03/16 23:45 98.1 66 18 135/80 97 05/03/16 20:45 97.7 69 17 140/84 98 05/03/16 19:00 59 05/03/16 16:17 97.2 37 18 120/64 98 05/03/16 12:00 98.6 80 18 147/78 98 I/O 05/03/16 05/03/16 05/03/16 05/04/16 05/04/16 05/04/16 07:00 15:00 23:00 07:00 15:00 23:00 Intake Total 120 ml 500 ml 500 ml Output Total 250 ml 200 ml 450 ml Balance -130 ml -200 ml 500 ml 50 ml Intake Oral 120 ml 500 ml 500 ml Output Urine Total 250 ml 200 ml 450 ml # Voids 1 # Bowel Movements 1 2 Result Diagram: 05/02/16 1243 05/03/16 0601 Imaging Last Impressions Head CT 05/02/16 1216 Signed Impressions: Service Date/Time: Monday, May 02, 2016 13:29 - CONCLUSION: 1. Acute intraventricular hemorrhage within the atrium of the right lateral ventricle. 2. Stable periventricular and subcortical white matter small vessel ischemic changes bilaterally. 3. Stable cerebral atrophy. 4. Subgaleal hematoma along the left frontal skull. NIRAJ Joseph was called immediately with the findings of examination at 1:50 p.m. on 05/02/16. Arjun Grossman MD Objective Remarks General: No acute distress. HEENT: Contusion and hematoma on the forehead above the left eye. Heart: Regular rate and rhythm. No murmur. Lungs: Clear to auscultation bilaterally. No wheezes, rales, or rhonchi. Breathing is nonlabored. Abdomen: Soft, nontender, nondistended. Extremities: No lower extremity edema. Psych: Alert and oriented. Procedures None Urinary Catheter: No Vascular Central Line Catheter: No A/P Problem List: (1) Intraventricular hemorrhage ICD Code: I61.5 Status: Acute (2) Fall at home ICD Code: W19.XXXA Status: Acute (3) Atrial fibrillation ICD Code: I48.91 Status: Chronic (4) Hypokalemia ICD Code: E87.6 Status: Acute (5) GERD (gastroesophageal reflux disease) ICD Code: K21.9 Status: Chronic (6) Dementia ICD Code: F03.90 Status: Chronic Assessment and Plan 1. Intracranial hemorrhage: Patient has had multiple falls at home recently. Hold anticoagulation. Appreciate neurology and neurosurgery recommendations. Continue physical therapy. 2. Atrial fibrillation: Monitor on telemetry. Rate is currently controlled. Consider cardiology consult. Echocardiogram does not provide much information. 3. Dementia: Stable, apparently at baseline. 4. Mild hypokalemia: Received potassium supplementation. 5. GERD: PPI. 6. DVT prophylaxis: SCDs, MICHELLE hose. Avoid chemical prophylaxis secondary to intracranial hemorrhage. Discharge Planning Possible discharge to inpatient rehabilitation tomorrow. Problem Qualifiers (1) Atrial fibrillation: Qualified Code: I48.91 - Atrial fibrillation, unspecified type (2) Dementia: Qualified Code: F03.91 - Dementia with behavioral disturbance, unspecified dementia type Tamir Lopez MD May 04, 2016 11:20
[2016-05-04 12:43] VITALS: PULSE 46
[2016-05-04 20:00] VITALS: BP 120/73; PULSE 84; RESP 18; TEMP 98.1; O2SAT 99
--- NOTE | 2016-05-04 23:48 | EKG ---
Date Performed: 05/02/2016 Time Performed: 12:31:38 PTAGE: 85 years EKG: Atrial fibrillation with PVCs vs aberrant beats Left axis deviation RBBB with left anterior fascicular block Low QRS voltages in limb leads Abnormal ECG PREVIOUS TRACING : 05/27/2013 12.37 Compared to the previous tracing, previously V-paced DOCTOR: Sky Alvarez Interpretating Date/Time 05/04/2016 23:45:42
[2016-05-05] VITALS (7 sets, daily range): BP systolic 113–140; BP diastolic 64–77; PULSE 42–80; RESP 18; TEMP 95.3–98; O2SAT 97–99
--- NOTE | 2016-05-05 08:57 | HHI.PR ---
Review/Management Diagnosis/Plan: (1) Dementia Plan: possibly vascular/alz gait d/o likely multifactorial- related to dementia/generalized arthritis/ visual acuity, perception recs neuro stable on chronic opiods for pain control. will worsen memory but apparently needs it for pain control. eeg-negative check b12/tsh- nml d/c planning; outpatient f/u (2) Intraventricular hemorrhage Plan: observation no OAC 2/2 ivh and falls (3) Atrial fibrillation Plan: paced (4) Postlaminectomy syndrome, lumbar Plan: see's pain md outpatient Subjective Subjective Comments No acute events reported No headache No chest pain No dyspnea Active Medications Current Medications Medications (Trade) Dose Ordered Sig/Mark Anthony Route Start Time Stop Time Status Last Admin (NS Flush) 2 ml UNSCH PRN FLUSH 05/02/16 14:15 (NS Flush) 2 ml BID FLUSH 05/02/16 21:00 05/04/16 10:57 (Tylenol) 650 mg Q4H PRN PO 05/02/16 14:15 (Zofran Inj) 4 mg Q6H PRN IVP 05/02/16 14:15 (Dulcolax Supp) 10 mg DAILY PRN MS 05/02/16 14:15 (Colace) 100 mg Q12HR PO 05/02/16 14:30 05/03/16 10:57 (Narcan Inj) 0.4 mg UNSCH PRN IV 05/02/16 14:15 (Protonix) 20 mg DAILY PO 05/03/16 09:00 05/04/16 10:57 (PROzac) 10 mg DAILY PO 05/03/16 09:00 05/04/16 10:57 (Topamax) 50 mg TID PO 05/03/16 09:00 05/04/16 18:52 Allergies Allergies Coded Allergies No Known Allergies (Verified05/02/16) Review of Systems All other ROS: ROS reviewed as documented in chart Exam I&O / VS 05/04/16 05/04/16 05/05/16 15:00 23:00 07:00 Intake Total 360 ml 650 ml 120 ml Output Total 300 ml Balance 60 ml 650 ml 120 ml Intake Oral 360 ml 650 ml 120 ml Output Urine Total 300 ml # Voids 3 3 # Bowel Movements 1 2 Vital Signs Date Time Temp Pulse Resp B/P Pulse Ox O2 Delivery O2 Flow Rate FiO2 2/9/17 04:00 97.9 78 18 130/77 97 05/05/16 00:00 98.0 80 18 124/76 99 05/04/16 20:00 98.1 84 18 120/73 99 05/04/16 12:43 46 05/04/16 11:15 98.7 56 19 125/62 100 Neurologic: Alert Psychiatric: Cooperative Exam Comments alert, ox 1-2. but not to date. follows, pleasant, eomi, vff grossly full, face sym, ou 3-2mm, mcintyre to gravity, msr 1+, no clonus, planter flexor response Problem Qualifiers (1) Dementia: Qualified Code: F03.91 - Dementia with behavioral disturbance, unspecified dementia type (2) Atrial fibrillation: Qualified Code: I48.91 - Atrial fibrillation, unspecified type Hiram Brooks MD May 05, 2016 08:57
[2016-05-05] MEDS: DOCUSATE SODIUM 100 MG CAP PO SCH ×2 (09:00→20:42)
[2016-05-05] MEDS: TOPIRAMATE 25 MG TAB PO SCH ×3 (09:48→17:16)
[2016-05-05] MEDS: PANTOPRAZOLE SOD 20 MG DELAYED RELEASE TAB PO SCH (09:48)
[2016-05-05] MEDS: FLUoxetine HCL 10 MG CAP PO SCH (09:48)
[2016-05-05] MEDS: SODIUM CHLORIDE 0.9% FLUSH 5 ML FLUSH FLUSH SCH ×2 (09:48→20:42)
--- NOTE | 2016-05-05 10:01 | HHI.DCPOC ---
Discharge Care Plan Diagnosis: (1) GERD (gastroesophageal reflux disease) (2) Dementia (3) Intraventricular hemorrhage (4) Atrial fibrillation (5) Fall at home (6) Headache Goals to Promote Your Health * To prevent worsening of your condition and complications * To maintain your health at the optimal level Directions to Meet Your Goals Take your medications as prescribed Follow your dietary instruction Follow activity as directed Keep your appointments as scheduled Take your immunizations and boosters as scheduled If your symptoms worsen call your PCP, if no PCP go to Urgent Care Center or Emergency Room Smoking is Dangerous to Your Health. Avoid second hand smoke Call the 24-hour hour crisis hotline for domestic abuse at Tamir Lopez MD May 05, 2016 10:01
[2016-05-05] MEDS ORDERED: ACET325T PO (10:03)
--- NOTE | 2016-05-05 10:19 | HHI.PR ---
Subjective Remarks Follow up ICH, a-fib. The patient is slightly more lethargic today. His is concerned that he is not feeling well today. The patient denies chest pain currently, but states he has had substernal pain over the last few days. States it has gotten better and is no longer bothering him. Denies shortness of breath. No nausea, vomiting. Objective Vitals Vital Signs Date Time Temp Pulse Resp B/P Pulse Ox O2 Delivery O2 Flow Rate FiO2 05/05/16 08:00 95.3 77 18 140/70 98 05/05/16 04:00 97.9 78 18 130/77 97 05/05/16 00:00 98.0 80 18 124/76 99 05/04/16 20:00 98.1 84 18 120/73 99 05/04/16 12:43 46 05/04/16 11:15 98.7 56 19 125/62 100 I/O 05/04/16 05/04/16 05/04/16 05/05/16 05/05/16 05/05/16 07:00 15:00 23:00 07:00 15:00 23:00 Intake Total 500 ml 360 ml 650 ml 120 ml Output Total 450 ml 300 ml Balance 50 ml 60 ml 650 ml 120 ml Intake Oral 500 ml 360 ml 650 ml 120 ml Output Urine Total 450 ml 300 ml # Voids 3 3 # Bowel Movements 2 1 2 Result Diagram: 05/02/16 1243 05/03/16 0601 Imaging Last Impressions Head CT 05/02/16 1216 Signed Impressions: Service Date/Time: Monday, May 02, 2016 13:29 - CONCLUSION: 1. Acute intraventricular hemorrhage within the atrium of the right lateral ventricle. 2. Stable periventricular and subcortical white matter small vessel ischemic changes bilaterally. 3. Stable cerebral atrophy. 4. Subgaleal hematoma along the left frontal skull. NIRAJ Joseph was called immediately with the findings of examination at 1:50 p.m. on 05/02/16. Arjun Grossman MD Objective Remarks General: No acute distress. HEENT: Contusion on the forehead above the left eye. Heart: Regular rate and rhythm. No murmur. Lungs: Clear to auscultation bilaterally. No wheezes, rales, or rhonchi. Breathing is nonlabored. Abdomen: Soft, nontender, nondistended. Extremities: No lower extremity edema. Psych: Awake, but somewhat more lethargic today. Answers questions appropriately , but does appear to be confused at times. Procedures None Urinary Catheter: No Vascular Central Line Catheter: No A/P Problem List: (1) Intraventricular hemorrhage ICD Code: I61.5 Status: Acute (2) Fall at home ICD Code: W19.XXXA Status: Acute (3) Atrial fibrillation ICD Code: I48.91 Status: Chronic (4) Hypokalemia ICD Code: E87.6 Status: Acute (5) GERD (gastroesophageal reflux disease) ICD Code: K21.9 Status: Chronic (6) Dementia ICD Code: F03.90 Status: Chronic Assessment and Plan 1. Intracranial hemorrhage: Patient has had multiple falls at home recently. Hold anticoagulation. Appreciate neurology and neurosurgery recommendations. Continue physical therapy. 2. Atrial fibrillation: Monitor on telemetry. Rate is currently controlled. Echocardiogram does not provide much information. 3. Dementia: Stable, apparently at baseline. 4. Mild hypokalemia: Received potassium supplementation. 5. GERD: PPI. 6. DVT prophylaxis: SCDs, MICHELLE reyna. Avoid chemical prophylaxis secondary to intracranial hemorrhage. Discharge Planning Possible discharge to inpatient rehabilitation tomorrow. Problem Qualifiers (1) Atrial fibrillation: Qualified Code: I48.91 - Atrial fibrillation, unspecified type (2) Dementia: Qualified Code: F03.91 - Dementia with behavioral disturbance, unspecified dementia type Tamir Lopez MD May 05, 2016 10:19
[2016-05-05 14:03] LABS: AUTOMATED NEUTROPHIL # 5.5 TH/MM3 (1.8-7.7); BASOPHIL % 0.2 % (0.0-2.0); EOSINOPHIL % 0.5 % (0.0-4.0); HEMATOCRIT 41.3 % (39.0-51.0); HEMO FLAGS DIFF FINAL; LYMPH % 21.3 % (9.0-44.0); LYMPHOCYTE # 1.7 TH/MM3 (1.0-4.8); MEAN CELL VOLUME 98.8 FL (80.0-100.0); MEAN CORPUSCULAR HEMOGLOBIN 32.9 PG (27.0-34.0); MEAN CORPUSCULAR HGB CONC 33.3 % (32.0-36.0); MONO % 8.1 % (0.0-8.0); NEUT % 69.9 % (16.0-70.0); PLATELET COUNT 182 TH/MM3 (150-450); RED BLOOD COUNT 4.18 MIL/MM3 (4.50-5.90); RED CELL DISTRIBUTION WIDTH 14.1 % (11.6-17.2); WHITE BLOOD COUNT 7.9 TH/MM3 (4.0-11.0)
[2016-05-05 14:30] LABS: BICARBONATE 20.6 MEQ/L (21.0-32.0)
[2016-05-05] MEDS ORDERED: POTASSIUM CHLORIDE 20 MEQ CONTROLLED RELEASE TAB PO ONE (16:30)
[2016-05-06 00:40] VITALS: BP 130/80; PULSE 80; RESP 16; TEMP 97.6; O2SAT 97
[2016-05-06 05:39] VITALS: BP 136/78; PULSE 78; RESP 18; TEMP 97.6; O2SAT 97
[2016-05-06 08:00] VITALS: BP 127/65; PULSE 43; RESP 16; TEMP 97.1; O2SAT 99
--- NOTE | 2016-05-06 08:09 | HHI.PR ---
Review/Management Diagnosis/Plan: (1) Dementia Plan: possibly vascular/alz gait d/o likely multifactorial- related to dementia/generalized arthritis/ visual acuity, perception recs neuro stable on chronic opiods for pain control. will worsen memory but apparently needs it for pain control. eeg-negative check b12/tsh- nml d/c planning; outpatient f/u with us in 1-2 weeks sign off (2) Intraventricular hemorrhage Plan: observation no OAC 2/2 ivh and falls (3) Atrial fibrillation Plan: paced (4) Postlaminectomy syndrome, lumbar Plan: see's pain md outpatient Subjective Subjective Comments No acute events reported No headache No chest pain No dyspnea Active Medications Current Medications Medications (Trade) Dose Ordered Sig/Mark Anthony Route Start Time Stop Time Status Last Admin (NS Flush) 2 ml UNSCH PRN FLUSH 05/02/16 14:15 (NS Flush) 2 ml BID FLUSH 05/02/16 21:00 05/05/16 20:42 (Tylenol) 650 mg Q4H PRN PO 05/02/16 14:15 (Zofran Inj) 4 mg Q6H PRN IVP 05/02/16 14:15 (Dulcolax Supp) 10 mg DAILY PRN AR 05/02/16 14:15 (Colace) 100 mg Q12HR PO 05/02/16 14:30 05/03/16 10:57 (Narcan Inj) 0.4 mg UNSCH PRN IV 05/02/16 14:15 (Protonix) 20 mg DAILY PO 05/03/16 09:00 05/05/16 09:48 (PROzac) 10 mg DAILY PO 05/03/16 09:00 05/05/16 09:48 (Topamax) 50 mg TID PO 05/03/16 09:00 05/05/16 17:16 Allergies Allergies Coded Allergies No Known Allergies (Verified05/02/16) Review of Systems All other ROS: ROS reviewed as documented in chart Exam I&O / VS 05/05/16 05/05/16 05/06/16 15:00 23:00 07:00 Intake Total 600 ml Balance 600 ml Intake Oral 600 ml # Voids 2 2 # Bowel Movements 2 0 Vital Signs Date Time Temp Pulse Resp B/P Pulse Ox O2 Delivery O2 Flow Rate FiO2 05/06/16 05:39 97.6 78 18 136/78 97 05/06/16 00:40 97.6 80 16 130/80 97 05/05/16 23:30 68 05/05/16 21:26 96.2 67 18 126/67 98 05/05/16 16:10 96.8 65 18 113/64 99 05/05/16 12:09 95.9 42 18 133/64 98 Neurologic: Alert Psychiatric: Cooperative Exam Comments alert, ox 1-2. "it's june 03" couldn't tell the year, but not to date. follows , pleasant, eomi, vff grossly full, face sym, ou 3-2mm, mcintyre to gravity, msr 1+ , no clonus, planter flexor response Objective Micro and Labs Laboratory Tests Test 05/05/16 13:43 White Blood Count 7.9 Red Blood Count 4.18 Hemoglobin 13.7 Hematocrit 41.3 Mean Corpuscular Volume 98.8 Mean Corpuscular Hemoglobin 32.9 Mean Corpuscular Hemoglobin 33.3 Concent Red Cell Distribution Width 14.1 Platelet Count 182 Mean Platelet Volume 8.1 Neutrophils (%) (Auto) 69.9 Lymphocytes (%) (Auto) 21.3 Monocytes (%) (Auto) 8.1 Eosinophils (%) (Auto) 0.5 Basophils (%) (Auto) 0.2 Neutrophils # (Auto) 5.5 Lymphocytes # (Auto) 1.7 Monocytes # (Auto) 0.6 Eosinophils # (Auto) 0.0 Basophils # (Auto) 0.0 CBC Comment DIFF FINAL Differential Comment Sodium Level 140 Potassium Level 3.0 Chloride Level 109 Carbon Dioxide Level 20.6 Anion Gap 10 Blood Urea Nitrogen 19 Creatinine 1.13 Estimat Glomerular Filtration 62 Rate Random Glucose 106 Calcium Level 9.1 Problem Qualifiers (1) Dementia: Qualified Code: F03.91 - Dementia with behavioral disturbance, unspecified dementia type (2) Atrial fibrillation: Qualified Code: I48.91 - Atrial fibrillation, unspecified type Hiram Brooks MD May 06, 2016 08:09
[2016-05-06 08:22] LABS: AUTOMATED NEUTROPHIL # 4.9 TH/MM3 (1.8-7.7); BASOPHIL % 0.5 % (0.0-2.0); EOSINOPHIL # 0.2 TH/MM3 (0-0.4); HEMATOCRIT 38.7 % (39.0-51.0); HEMO FLAGS DIFF FINAL; LYMPH % 24.9 % (9.0-44.0); LYMPHOCYTE # 1.9 TH/MM3 (1.0-4.8); MEAN CELL VOLUME 97.9 FL (80.0-100.0); MEAN CORPUSCULAR HEMOGLOBIN 34.2 PG (27.0-34.0); MONO % 9.9 % (0.0-8.0); NEUT % 62.7 % (16.0-70.0); PLATELET COUNT 169 TH/MM3 (150-450); RED BLOOD COUNT 3.96 MIL/MM3 (4.50-5.90); RED CELL DISTRIBUTION WIDTH 14.4 % (11.6-17.2); WHITE BLOOD COUNT 7.7 TH/MM3 (4.0-11.0)
[2016-05-06 08:46] LABS: BICARBONATE 19.5 MEQ/L (21.0-32.0); POTASSIUM 3.1 MEQ/L (3.5-5.1)
[2016-05-06] MEDS: SODIUM CHLORIDE 0.9% FLUSH 5 ML FLUSH FLUSH SCH (09:47)
[2016-05-06] MEDS: PANTOPRAZOLE SOD 20 MG DELAYED RELEASE TAB PO SCH (09:47)
[2016-05-06] MEDS: DOCUSATE SODIUM 100 MG CAP PO SCH (09:48)
[2016-05-06] MEDS: FLUoxetine HCL 10 MG CAP PO SCH (09:48)
[2016-05-06] MEDS: TOPIRAMATE 25 MG TAB PO SCH ×2 (09:48→13:45)
[2016-05-06] MEDS ORDERED: POTA10TA8 PO (10:27)
[2016-05-06] MEDS ORDERED: POTASSIUM CHLORIDE 20 MEQ CONTROLLED RELEASE TAB PO ONE (10:30)
--- NOTE | 2016-05-06 11:04 | HHI.DS ---
Discharge Summary Admission Date May 02, 2016 at 14:10 Discharge Date: May 06, 2016 Admitting Diagnosis CVA, interventricular bleed, subacute, dementia, falls (1) Intraventricular hemorrhage ICD Code: I61.5 (2) Fall at home ICD Code: W19.XXXA (3) Atrial fibrillation ICD Code: I48.91 (4) Hypokalemia ICD Code: E87.6 (5) GERD (gastroesophageal reflux disease) ICD Code: K21.9 (6) Dementia ICD Code: F03.90 Procedures None Brief History - From Admission The patient is an 85-year-old male with history of dementia who reportedly fell at home a few days ago. He states that he hit his forehead on concrete. He does have baseline confusion and is a poor historian overall. He states that he has been falling more recently. He reports that the last 2-3 weeks he has been more dizzy and lightheaded. Denies chest pain or dyspnea. He reports pain and numbness in both hands, but states that this has been present for a couple months. CBC/BMP: 05/06/16 0718 05/06/16 0718 Significant Findings Laboratory Tests Test 05/03/16 05/05/16 05/06/16 14:30 13:43 07:18 Erythrocyte Sedimentation Rate 29 mm/hr (0-20) Red Blood Count 4.18 MIL/MM3 3.96 MIL/MM3 (4.50-5.90) (4.50-5.90) Monocytes (%) (Auto) 8.1 % (0.0-8.0) 9.9 % (0.0-8.0) Potassium Level 3.0 MEQ/L 3.1 MEQ/L (3.5-5.1) (3.5-5.1) Chloride Level 109 MEQ/L 112 MEQ/L (98-107) (98-107) Carbon Dioxide Level 20.6 MEQ/L 19.5 MEQ/L (21.0-32.0) (21.0-32.0) Blood Urea Nitrogen 19 MG/DL (7-18) 20 MG/DL (7-18) Estimat Glomerular Filtration 62 ML/MIN (>89) 62 ML/MIN (>89) Rate Hematocrit 38.7 % (39.0-51.0) Mean Corpuscular Hemoglobin 34.2 PG (27.0-34.0) Imaging Last Impressions Head CT 05/02/16 1216 Signed Impressions: Service Date/Time: Monday, May 02, 2016 13:29 - CONCLUSION: 1. Acute intraventricular hemorrhage within the atrium of the right lateral ventricle. 2. Stable periventricular and subcortical white matter small vessel ischemic changes bilaterally. 3. Stable cerebral atrophy. 4. Subgaleal hematoma along the left frontal skull. NIRAJ Joseph was called immediately with the findings of examination at 1:50 p.m. on 05/02/16. Arjun Grossman MD PE at Discharge General: No acute distress. HEENT: Contusion on the forehead above the left eye. Heart: Regular rate and rhythm. No murmur. Lungs: Clear to auscultation bilaterally. No wheezes, rales, or rhonchi. Breathing is nonlabored. Abdomen: Soft, nontender, nondistended. Extremities: No lower extremity edema. Psych: Awake, but somewhat more lethargic today. Answers questions appropriately , but does appear to be confused at times. Pt update on day of discharge The patient states that he feels better today. Still has headache. Denies chest pain or dyspnea. Feels that he is ready to go to rehabilitation. His is at bedside and also feels that he is better today. Hospital Course The patient was admitted for management of intracranial hemorrhage secondary to fall. Neurology and neurosurgery were consulted. Anticoagulation was held secondary to hemorrhage. Physical therapy and occupational therapy were continued. He showed clinical improvement through the hospitalization. He continued to have headache and weakness. He was cleared by neurology and neurosurgery for discharge to inpatient rehab. Pt Condition on Discharge: Stable Discharge Disposition: Rehab Inpatient Discharge Time: > 30 minutes Discharge Instructions DIET: Follow Instructions for: Heart Healthy Diet Activities you can perform: Regular-No Restrictions Follow up Referrals: Neurology - 2 Weeks with Hiram Brooks MD Neurosurgery - 1 Month @ [facility] New Orders: CT Brain W/O Contrast - 1 Month @ [facility] New Medications: Potassium Chloride ER (Potassium Chloride CR) 10 Meq Tab 10 MEQ PO DAILY Supplement #30 TAB Acetaminophen (Acetaminophen) 325 Mg Tab 650 MG PO Q4H PRN fever or headache #30 TAB Continued Medications: Fluoxetine (Fluoxetine) 10 Mg Cap 10 MG PO DAILY #30 Ref 0 CAP Topiramate (Topamax) 50 Mg Tab 50 MG PO TID Control Seizures #60 Ref 0 TAB Discontinued Medications: Hydrocodone-Acetaminophen (Lortab) 10-325 Mg Tab 1 TAB PO BID PRN PAIN Ref 0 TAB Morphine IR (Morphine IR) 15 Mg Tab 15 MG PO TID PRN PAIN Ref 0 TAB Tamir Lopez MD May 06, 2016 11:04
[2016-05-06 12:00] VITALS: BP 123/64; PULSE 71; RESP 18; TEMP 96.5; O2SAT 98
[2016-05-06 13:01] VITALS: PULSE 73
[2016-05-19] MEDS ORDERED: TOPA50TA7 PO (12:22)
[2016-05-19] MEDS ORDERED: BUTATAB6 PO (12:22)
[2016-05-19] MEDS ORDERED: HYDR-3516 PO (12:22)
[2016-05-19] MEDS ORDERED: FLUO10CA5 PO (12:22)
[2016-05-19] MEDS ORDERED: PANT20 PO (12:22)
[2016-05-19] MEDS ORDERED: POTA10TA8 PO (12:22)
[2016-05-20] MEDS ORDERED: WHEEMIS3 (07:55)
== END 2016-05-06 14:52 | DRG 86 ==
LOC: PHEFT 11:41 → PHEDA 14:10 → N05B 21:27
PROVIDERS: ADMIT Family Medicine; ATTEND Family Medicine
DX: S06.300A Unspecified focal traumatic brain injury without loss of consciousness, initial encounter (principal); F03.91 Unspecified dementia, unspecified severity, with behavioral disturbance; I48.91 Unspecified atrial fibrillation; S00.83XA Contusion of other part of head, initial encounter; Z91.81 History of falling; E87.6 Hypokalemia; K21.9 Gastro-esophageal reflux disease without esophagitis; E78.5 Hyperlipidemia, unspecified; Z86.73 Personal history of transient ischemic attack (TIA), and cerebral infarction without residual deficits; Z95.0 Presence of cardiac pacemaker; W18.30XA Fall on same level, unspecified, initial encounter; Y92.009 Unspecified place in unspecified non-institutional (private) residence as the place of occurrence of the external cause; R29.6 Repeated falls; G44.321 Chronic post-traumatic headache, intractable; G89.4 Chronic pain syndrome; I45.10 Unspecified right bundle-branch block; M96.1 Postlaminectomy syndrome, not elsewhere classified; R32 Unspecified urinary incontinence; Z96.619 Presence of unspecified artificial shoulder joint; Z98.1 Arthrodesis status
CPT/HCPCS: 70450; 80048; 80053; 81001; 82607; 84443; 85025; 85610; 85652; 85730; 93005; 93306; 95819

== ENCOUNTER 2016-08-29 18:42 | Emergency (ER) | payer MEDICARE, BC ==
[~2016-08-29] VITALS: Ht 180.3 cm; Wt 73.8 kg
[~2016-08-29 18:42] MED LIST changes: +ACET325T PO; +BUTATAB6 PO; +FLUO10CA5 PO; +HYDR-3516 PO; -MSIR15 PO; +PANT20 PO; +POTA10TA8 PO; +TOPA50TA7 PO; -TOPI50TA4 PO; -ULTR50TA PO; -WARF5TAB PO; +WHEEMIS3
[2016-08-29 18:50] VITALS: BP 140/88; PULSE 66; RESP 16; TEMP 97.8; O2SAT 99
[2016-08-29 19:05] VITALS: BP 143/83; PULSE 69; RESP 18; O2SAT 99
[2016-08-29] MEDS ORDERED: SODIUM CHLORIDE 0.9% FLUSH 10 ML FLUSH IVF PRN (19:15)
[2016-08-29] MEDS ORDERED: MORP1TAB25 PO ×2 (19:22)
[2016-08-29] MEDS ORDERED: depression (19:22)
[2016-08-29] MEDS ORDERED: HYDR-3583 PO (19:22)
--- NOTE | 2016-08-29 19:27 | PD ---
HPI Chief Complaint: Fall Time Seen by Provider: 19:13 Travel History International Travel<30 days: No Contact w/Intl Traveler<30days: No Traveled to known affect area: No History of Present Illness HPI 85-year-old male presents to the emergency department by private transportation in the care of his spouse for evaluation of head injury. According to the patient who does have history of dementia and his , sometime just prior to arrival to the emergency department he had an unwitnessed fall in the garage. states he has frequent falls. Patient is reportedly on no blood thinning agents. Patient had previously been on Coumadin but this has been discontinued since April. Patient was admitted to the hospital in April for an intracranial bleed status post fall. states she was out of the house for approximately 15-20 minutes at the store when she returned she found him on the floor in the garage and awake. was unable to get the patient up off the floor on her own however was able to allow him to pull himself up into his wheelchair with minimal assistance. They waited until her son to bring him to the hospital. Patient has a large hematoma to the left forehead region. Patient does complain of some neck pain but does not reported as new neck pain. Patient denies any new upper or lower extremity numbness tingling or weakness. Patient does not recall any specific precipitating event but does not report any headache confusion focal weakness chest pain palpitation shortness of breath or abdominal pain prior to the fall or subsequently since the fall. Patient does have some skin tears to the left elbow and upper extremity from today as well as similar type of skin tears affecting the right upper extremity which reportedly occurred yesterday with an unwitnessed fall. Patient does have history of atrial fibrillation, pacemaker, dementia, chronic pain syndrome, arthritis, and daily cocktail use. Tetanus status is unknown. Patient rates his pain 9.7 5/10. PFSH Past Medical History Narrative Medical Medical history reviewed and nursing notes reviewed Arthritis: Yes Blood Disorders: No Anxiety: No Depression: No Cancer: No Cardiovascular Problems: Yes (PACEMAKER (MEDTRONIC)) High Cholesterol: Yes Chest Pain: Yes Congestive Heart Failure: No COPD: No Cerebrovascular Accident: Yes Dementia: Yes Diabetes: No Diminished Hearing: No Endocrine: No Gastrointestinal Disorders: Yes (OCC GERD) GERD: Yes Genitourinary: No Headaches: Yes Hepatitis: No Hiatal Hernia: No Immune Disorder: No Musculoskeletal: Yes (ARTHRITIS, BACK, CHRONIC SHOULDER/NECK/SCAPULAR PAIN, DEGENERATIVE DISC DIS) Neurologic: Yes (DIZZINESS, CHRONIC HEADACHE) Psychiatric: No Reproductive: No Respiratory: No Immunizations Current: Yes Migraines: No Seizures: No Sleep Apnea: No Thyroid Disease: No Ulcer: No Past Surgical History Abdominal Surgery: No AICD: No Body Medical Devices: N/A Cardiac Surgery: Yes (CARDIAC CATH, PACEMAKER) Ear Surgery: No Endocrine Surgery: No Eye Surgery: Yes (BILAT CATARACT EXTRACT.) Genitourinary Surgery: No Joint Replacement: Yes (LEFT SHOULDER) Oral Surgery: Yes (TONSILLECTOMY) Pacemaker: Yes (MEDTRONIC) Thoracic Surgery: Yes Tonsillectomy: Yes Other Surgery: Yes (SINUS ) Social History Alcohol Use: Yes (cocktail DAILY) Tobacco Use: No Substance Use: No Allergies-Medications (Allergen,Severity, Reaction): Coded Allergies: No Known Allergies (Verified , 08/29/16) Reported Meds & Prescriptions Reported Meds & Active Scripts Active Wheelchair (Device) 1 Mis Mis 1 Ea .ROUTE DIRECTED Topamax (Topiramate) 50 Mg Tab 50 Mg PO TID Reported Hydrocodone-Acetaminophen 10-325 mg Tab 1 Tab PO Q6H PRN [depression] Morphine ER (Morphine Sulfate) 30 Mg Tab 30 Mg PO Q8H Review of Systems Except as stated in HPI: all other systems reviewed are Neg General / Constitutional: No: Fever Eyes: No: Visual changes HENT: Positive: Headaches, Neck Pain Cardiovascular: No: Chest Pain or Discomfort, Palpitations, Diaphoresis Respiratory: No: Shortness of Breath, Pleuritic Pain Gastrointestinal: No: Nausea, Vomiting, Abdominal Pain Genitourinary: No: Decreased Urinary Output, Flank Pain Musculoskeletal: Positive: Myalgias, Arthralgias Skin: Positive Rash Neurologic: Positive: Weakness, No: Dizziness (multiple upper extremity skin tears), Syncope, Focal Abnormalities, Coordination Problem, Change in Mentation Psychiatric: No: Anxiety (chronic dementia) Hematologic/Lymphatic: No: Easy Bruising Physical Exam Narrative GENERAL: Well-developed elderly male in no acute distress no respiratory distress aware of location, name, date of , events. SKIN: Warm and dry. HEAD: Atraumatic. Normocephalic. Patient with left lateral forehead contusion with soft tissue swelling consistent with hematoma and stellate 1CM laceration with good wound edge approximation; no bony abnormalities noted to palpation. EYES: Pupils equal and round. No periorbital rim crepitus or bony step-off or ecchymosis. Extraocular muscles intact. No scleral icterus. No injection or drainage. ENT: No nasal bleeding or discharge. Mucous membranes pink and moist. Airway is patent. No hemotympanum bilaterally. NECK: Trachea midline. No JVD. Mild tenderness to palpation along the cervical spine with no bony step-off and no spasm. Cervical collar applied. CARDIOVASCULAR: Regular rate and rhythm. Chest wall: Evidence of pacemaker in place no bony tenderness RESPIRATORY: No accessory muscle use. Clear to auscultation. Breath sounds equal bilaterally. GASTROINTESTINAL: Abdomen soft, non-tender, nondistended. Hepatic and splenic margins not palpable. MUSCULOSKELETAL: Extremities without clubbing, cyanosis, or edema. No obvious deformities. NEUROLOGICAL: Awake and alert. No obvious cranial nerve deficits. Motor grossly within normal limits. Five out of 5 muscle strength in the arms and legs. Normal speech. PSYCHIATRIC: Appropriate mood and affect; insight and judgment normal. Data Data Last Documented VS Vital Signs Date Time Temp Pulse Resp B/P Pulse Ox O2 Delivery O2 Flow Rate FiO2 08/29/16 19:05 69 18 143/83 99 Room Air 08/29/16 18:[address] Brain W/O Iv Contrast(Rout) (08/29/16 ) Ct Cerv Spine W/O Contrast (08/29/16 ) Apply Cervical Collar (08/29/16 19:13) Wound Care (08/29/16 19:13) Ice/Cold Pack (08/29/16 19:13) Electrocardiogram (08/29/16 19:13) Basic Metabolic Panel (Bmp) (08/29/16 19:13) Complete Blood Count With Diff (08/29/16 19:13) Magnesium (Mg) (08/29/16 19:13) Troponin I (08/29/16 19:13) Act Partial Throm Time (Ptt) (08/29/16 19:13) Prothrombin Time / Inr (Pt) (08/29/16 19:13) Chest, Single Ap (08/29/16 19:13) Ecg Monitoring (08/29/16 19:13) Iv Access Insert/Monitor (08/29/16 19:13) Oximetry (08/29/16 19:13) Sodium Chloride 0.9% Flush (Ns Flush) (08/29/16 19:15) Remove Cervical Collar (08/29/16 21:17) Potassium Chloride (Kcl) (08/29/16 21:30) Labs Laboratory Tests Test 08/29/16 19:28 White Blood Count 6.8 TH/MM3 Red Blood Count 3.68 MIL/MM3 Hemoglobin 12.2 GM/DL Hematocrit 36.8 % Mean Corpuscular Volume 100.1 FL Mean Corpuscular Hemoglobin 33.2 PG Mean Corpuscular Hemoglobin 33.2 % Concent Red Cell Distribution Width 14.2 % Platelet Count 149 TH/MM3 Mean Platelet Volume 7.6 FL Neutrophils (%) (Auto) 54.9 % Lymphocytes (%) (Auto) 33.2 % Monocytes (%) (Auto) 8.6 % Eosinophils (%) (Auto) 3.0 % Basophils (%) (Auto) 0.3 % Neutrophils # (Auto) 3.7 TH/MM3 Lymphocytes # (Auto) 2.3 TH/MM3 Monocytes # (Auto) 0.6 TH/MM3 Eosinophils # (Auto) 0.2 TH/MM3 Basophils # (Auto) 0.0 TH/MM3 CBC Comment DIFF FINAL Differential Comment Prothrombin Time 11.5 SEC Prothromb Time International 1.0 RATIO Ratio Activated Partial 27.3 SEC Thromboplast Time Sodium Level 141 MEQ/L Potassium Level 3.2 MEQ/L Chloride Level 107 MEQ/L Carbon Dioxide Level 26.6 MEQ/L Anion Gap 7 MEQ/L Blood Urea Nitrogen 12 MG/DL Creatinine 0.95 MG/DL Estimat Glomerular Filtration 75 ML/MIN Rate Random Glucose 80 MG/DL Calcium Level 8.6 MG/DL Magnesium Level 2.1 MG/DL Troponin I 0.02 NG/ML MDM Medical Decision Making Medical Screen Exam Complete: Yes Emergency Medical Condition: Yes Medical Record Reviewed: Yes Interpretation(s) EKG sinus rhythm first degree AV block rate [address] elevation or injury pattern right bundle branch block with left anterior fascicular block Last Impressions Chest X-Ray 08/29/16 1913 Signed Impressions: Service Date/Time: Monday, August 29, 2016 19:34 - CONCLUSION: No evidence of acute cardiopulmonary disease. Adi Keith MD Head CT 08/29/16 0000 Signed Impressions: Service Date/Time: Monday, August 29, 2016 20:04 - CONCLUSION: 1. No bleed or other acute intracranial abnormality. 2. Chronic white matter changes. 3. Left periorbital and temporal scalp/soft tissue contusion. Adi Keith MD Cervical Spine CT 08/29/16 0000 Signed Impressions: Service Date/Time: Monday, August 29, 2016 20:04 - CONCLUSION: Intact cervical spine. Multilevel degenerative changes similar to before. Adi Keith MD CBC & BMP Diagram 08/29/16 19:28 Vital Signs Date Time Temp Pulse Resp B/P Pulse Ox O2 Delivery O2 Flow Rate FiO2 08/29/16 19:05 69 18 143/83 99 Room Air 08/29/16 18:50 97.8 66 16 140/88 99 PT/INR/aPTT:11.5/1.0/27.3 Differential Diagnosis Mechanical fall, ICH, contusion, CHI, multiple abrasions, arrhythmia, syncope, ACS, [place], anemia, PE Narrative Course Patient placed on monitoring engineer IV access obtained specimens collected and sent for resulting areas of soft tissue contusion and skin tear cleansed and dressing applied; imaging studies ordered along with EKG; tetanus status and 2014 per nursing history Lab values grossly normal range except for mild anemia and hypokalemia EKG sinus rhythm with first-degree AV block and no acute ST elevation or injury pattern change noted chronic right bundle branch block noted Chest x-ray reveals no acute abnormality CT imaging studies found to identify no skull fracture or acute intracranial pathology or bony abnormality by cervical spine chronic degenerative changes are noted. Cervical collar removed by me Procedures Procedure Narrative LACERATION LOCATION: Left forehead LENGTH: 1 cm stellate NUMBER OF STITCHES/ALEXIS: Wound adhesive REPAIR: The area of the laceration was prepped with Betadine and sterilely draped. The wound was copiously irrigated and explored without evidence of foreign body, tendon injury or neurovascular injury. The wound was closed using wound adhesive/Dermabond. This was a single layer repair. The patient was advised to keep the site clean and dry. Patient tolerated the procedure well. Tetanus status current as of 2013 per [facility] EMR. Diagnosis Primary Impression: Closed head injury Qualified Code: S09.90XA - Closed head injury, initial encounter Additional Impressions: Fall at home Qualified Code: W19.XXXA - Fall at home, initial encounter Hypokalemia Cervical myofascial strain Qualified Code: S16.1XXA - Cervical myofascial strain, initial encounter Referrals: Primary Care Physician 2 days Patient Instructions: General Instructions Additional Instructions: Follow closed head injury precautions 24 hours Follow wound care directions as provided Apply ice to areas of soft tissue swelling for the first 12-24 hours Follow-up with primary care physician call office in a.m. to schedule follow-up appointment Return to the emergency department for any concerns or change in condition Use caution for increased risk of fall Wound check at 2 days Increase potassium containing foods and beverages to dietary intake Med/Other Pt SpecificInfo: No Change to Meds Disposition: 01 DISCHARGE HOME Condition: Stable Carmel Garrett MD Aug 29, 2016 19:27
[2016-08-29 19:41] LABS: AUTOMATED NEUTROPHIL # 3.7 TH/MM3 (1.8-7.7); BASOPHIL % 0.3 % (0.0-2.0); EOSINOPHIL # 0.2 TH/MM3 (0-0.4); HEMATOCRIT 36.8 % (39.0-51.0); HEMO FLAGS DIFF FINAL; LYMPH % 33.2 % (9.0-44.0); LYMPHOCYTE # 2.3 TH/MM3 (1.0-4.8); MEAN CELL VOLUME 100.1 FL (80.0-100.0); MEAN CORPUSCULAR HEMOGLOBIN 33.2 PG (27.0-34.0); MEAN CORPUSCULAR HGB CONC 33.2 % (32.0-36.0); MONO % 8.6 % (0.0-8.0); NEUT % 54.9 % (16.0-70.0); PLATELET COUNT 149 TH/MM3 (150-450); RED BLOOD COUNT 3.68 MIL/MM3 (4.50-5.90); RED CELL DISTRIBUTION WIDTH 14.2 % (11.6-17.2); WHITE BLOOD COUNT 6.8 TH/MM3 (4.0-11.0)
[2016-08-29 19:51] LABS: POTASSIUM 3.2 MEQ/L (3.5-5.1)
[2016-08-29 19:54] LABS: BICARBONATE 26.6 MEQ/L (21.0-32.0); MAGNESIUM 2.1 MG/DL (1.5-2.5)
[2016-08-29 19:56] LABS: APTT (PATIENT) 27.3 SEC (24.3-30.1); PROTHROMBIN TIME - PATIENT 11.5 SEC (9.8-11.6)
--- NOTE | 2016-08-29 20:12 | RADHPO ---
EXAM DATE/TIME: 08/29/2016 19:34 [place] COMPARISON: CHEST PA & LAT, May 27, 2013, 13:05. INDICATIONS : Trauma, fall. MEDICAL HISTORY : Cardiovascular disease. SURGICAL HISTORY : Pacemaker. ENCOUNTER: Initial ACUITY: 1 day PAIN SCORE: 0/10 LOCATION: Bilateral chest FINDINGS: No infiltrate, effusion or pneumothorax demonstrated. Visualized osseous structures are grossly intac t. Stable heart size and tortuosity of the thoracic aorta. No mediastinal widening. Cardiac pacer again noted. CONCLUSION: No evidence of acute cardiopulmonary disease. Adi Keith MD on August 29, 2016 at 20:09 Board Certified Radiologist. This report was verified electronically.
--- NOTE | 2016-08-29 20:34 | RADHPO ---
EXAM DATE/TIME: 08/29/2016 20:04 [facility] COMPARISON: CT BRAIN W/O CONTRAST, May 11, 2016, 16:00. INDICATIONS : Trauma. Fall. Left frontal laceration and swelling. RADIATION DOSE: 63.99 CTDIvol (mGy) MEDICAL HISTORY : Dementia. Cardiovascular disease History of brain bleed April 2016. SURGICAL HISTORY : Pacemaker. ENCOUNTER: Initial ACUITY: 1 day PAIN SCALE: 8/10 LOCATION: Left frontal TECHNIQUE: Multiple contiguous axial images were obtained of the head. Using automated exposure control and adj ustment of the mA and/or kV according to patient size, radiation dose was kept as low as reasonably a chievable to obtain optimal diagnostic quality images. FINDINGS: CEREBRUM: The ventricles are normal for age. No evidence of midline shift, mass lesion, hemorrhage or acute in farction. No extra-axial fluid collections are seen. Chronic low attenuation noted of the periventri cular white matter POSTERIOR FOSSA: The cerebellum and brainstem are intact. The 4th ventricle is midline. The cerebellopontine angle i s unremarkable. EXTRACRANIAL: Left super orbital/temporal scalp contusion is seen. SKULL: The calvaria is intact. No evidence of skull fracture. CONCLUSION: 1. No bleed or other acute intracranial abnormality. 2. Chronic white matter changes. 3. Left periorbital and temporal scalp/soft tissue contusion. Adi Keith MD on August 29, 2016 at 20:31 Board Certified Radiologist. This report was verified electronically.
--- NOTE | 2016-08-29 20:40 | RADHPO ---
EXAM DATE/TIME: 08/29/2016 20:04 [facility] COMPARISON: CT CERVICAL SPINE W/O CONTRAST, July 15, 2015, 9:19. INDICATIONS : Trauma. Fall. Neck pain. RADIATION DOSE: 26.71 CTDIvol (mGy) MEDICAL HISTORY : Dementia. Cardiovascular disease SURGICAL HISTORY : Pacemaker. ENCOUNTER: Initial ACUITY: 1 day PAIN SCALE: 8/10 LOCATION: Bilateral neck TECHNIQUE: Volumetric scanning of the cervical spine was performed. Multiplanar reconstructions in the sagittal, coronal and oblique axial planes were performed. Using automated exposure control and adjustment o f the mA and/or kV according to patient size, radiation dose was kept as low as reasonably achievable to obtain optimal diagnostic quality images. FINDINGS: There is no acute fracture or subluxation of the cervical spine. Vertebral bodies have normal height. Juxtavertebral soft tissues are within normal limits. Moderate disc space narrowing again seen C3/C4 and C5/C6. There is mild disc space narrowing at the o ther levels. [id number] uncovertebral and facet osteoarthritis throughout. There is mild forami nal encroachment on the left at C3/C4 and bilaterally at C5/C6. CONCLUSION: Intact cervical spine. Multilevel degenerative changes similar to before. Adi Keith MD on August 29, 2016 at 20:37 Board Certified Radiologist. This report was verified electronically.
[2016-08-29 21:05] VITALS: BP 133/80; PULSE 81; RESP 18; O2SAT 98
[2016-08-29] MEDS ORDERED: POTASSIUM CHLORIDE 20 MEQ CONTROLLED RELEASE TAB PO ONE (21:30)
[2016-08-29 22:15] VITALS: BP 145/82
--- NOTE | 2016-08-30 21:51 | EKG ---
Date Performed: 08/29/2016 Time Performed: 19:37:24 PTAGE: 85 years EKG: Undetermined rhythm. Left axis deviation RBBB with left anterior fascicular block Since pre vious tracing, no significant change noted Abnormal ECG PREVIOUS TRACING : 05/02/2016 12.31 DOCTOR: Immanuel Keyes Interpretating Date/Time 08/30/2016 21:49:54
== END 2016-08-29 22:33 | disposition home or self-care (01) ==
LOC: PHED 18:42
DX: S09.90XA Unspecified injury of head, initial encounter (principal); S00.83XA Contusion of other part of head, initial encounter; S16.1XXA Strain of muscle, fascia and tendon at neck level, initial encounter; E87.6 Hypokalemia; F03.90 Unspecified dementia, unspecified severity, without behavioral disturbance, psychotic disturbance, mood disturbance, and anxiety; I45.2 Bifascicular block; E78.00 Pure hypercholesterolemia, unspecified; K21.9 Gastro-esophageal reflux disease without esophagitis; I48.91 Unspecified atrial fibrillation; Z86.73 Personal history of transient ischemic attack (TIA), and cerebral infarction without residual deficits; Z95.0 Presence of cardiac pacemaker; W19.XXXA Unspecified fall, initial encounter; Y93.9 Activity, unspecified; Y92.008 Other place in unspecified non-institutional (private) residence as the place of occurrence of the external cause; Y99.8 Other external cause status
CPT/HCPCS: 12011; 70450; 71010; 72125; 80048; 83735; 84484; 85025; 85610; 85730; 93005

== ENCOUNTER 2016-09-03 10:45 | Emergency (ER) | payer MEDICARE, BC ==
[~2016-09-03 10:45] MED LIST changes: -ACET325T PO; -BUTATAB6 PO; -FLUO10CA5 PO; -HYDR-3516 PO; +HYDR-3583 PO; +MORP1TAB25 PO; -PANT20 PO; -POTA10TA8 PO; +depression
[2016-09-03 10:58] VITALS: BP 154/85; PULSE 77; RESP 14; TEMP 97.8; O2SAT 98
--- NOTE | 2016-09-03 11:22 | PD ---
HPI Chief Complaint: Fall Time Seen by Provider: 11:07 Travel History International Travel<30 days: No Contact w/Intl Traveler<30days: No Traveled to known affect area: No History of Present Illness HPI Patient presents for a fall approximately 9:30 this morning. Patient has a mentally he is a poor historian. States he fell forward reached out rate is fall but ended up hitting his head. Denies loss of consciousness. 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 Reports a fall 3-4 days ago to his left ribs. He is not on any anticoagulation. Denies any new chest pain shortness of breath urinary or bowel symptoms. History of multiple falls. Takes multiple pain medications.. PFSH Past Medical History Arthritis: Yes Blood Disorders: No Anxiety: No Depression: No Cancer: No Cardiovascular Problems: Yes (PACEMAKER ([employer])) High Cholesterol: Yes Chest Pain: Yes Congestive Heart Failure: No COPD: No Cerebrovascular Accident: Yes Dementia: Yes Diabetes: No Diminished Hearing: No Endocrine: No Gastrointestinal Disorders: Yes (OCC GERD) GERD: Yes Genitourinary: No Headaches: Yes Hepatitis: No Hiatal Hernia: No Immune Disorder: No Implanted Vascular Access Dvce: Yes Musculoskeletal: Yes (ARTHRITIS, BACK, CHRONIC SHOULDER/NECK/SCAPULAR PAIN, DEGENERATIVE DISC DIS) Neurologic: Yes (DIZZINESS, CHRONIC HEADACHE) Psychiatric: No Reproductive: No Respiratory: No Immunizations Current: Yes Migraines: No Seizures: No Sleep Apnea: No Thyroid Disease: No Ulcer: No Tetanus Vaccination: < 5 Years Influenza Vaccination: Yes Past Surgical History Abdominal Surgery: No AICD: No Body Medical Devices: N/A Cardiac Surgery: Yes (CARDIAC CATH, PACEMAKER) Ear Surgery: No Endocrine Surgery: No Eye Surgery: Yes (BILAT CATARACT EXTRACT.) Genitourinary Surgery: No Joint Replacement: Yes (LEFT SHOULDER) Oral Surgery: Yes (TONSILLECTOMY) Pacemaker: Yes ([employer]TRONIC) Thoracic Surgery: Yes Tonsillectomy: Yes Other Surgery: Yes (SINUS ) Social History Alcohol Use: Yes (cocktail DAILY) Tobacco Use: No Substance Use: No Allergies-Medications (Allergen,Severity, Reaction): Coded Allergies: No Known Allergies (Verified , 09/03/16) Reported Meds & Prescriptions Reported Meds & Active Scripts Active Wheelchair (Device) 1 Mis Mis 1 Ea .ROUTE DIRECTED Topamax (Topiramate) 50 Mg Tab 50 Mg PO TID Reported Hydrocodone-Acetaminophen 10-325 mg Tab 1 Tab PO Q6H PRN [depression] Morphine ER (Morphine Sulfate) 30 Mg Tab 30 Mg PO Q8H Review of Systems General / Constitutional: No: Fever Eyes: No: Visual changes HENT: No: Headaches Cardiovascular: No: Chest Pain or Discomfort Respiratory: No: Shortness of Breath Gastrointestinal: No: Abdominal Pain Genitourinary: No: Dysuria Musculoskeletal: No: Pain Skin: No Rash Neurologic: No: Weakness Psychiatric: No: Depression Endocrine: No: Polydipsia Hematologic/Lymphatic: No: Easy Bruising Physical Exam Narrative GENERAL: Thin with temporal wasting SKIN: Focused skin assessment warm/dry. HEAD: Normocephalic. EYES: No scleral icterus. No injection or drainage. Sluggish. Pupils equal round reactive light and accommodation, ocular muscles intact NECK: Supple, trachea midline. No JVD or lymphadenopathy. CARDIOVASCULAR: Regular rate and rhythm without murmurs, gallops, or rubs. Left upper chest pacemaker RESPIRATORY: Breath sounds equal bilaterally. No accessory muscle use. GASTROINTESTINAL: Abdomen soft, non-tender, nondistended. MUSCULOSKELETAL: No cyanosis, or edema. BACK: Nontender without obvious deformity. No CVA tenderness. Ecchymosis hematoma left temporal region from previous injury Laceration above the right eyebrow measuring approximately 2 cm Data Data Last Documented VS Vital Signs Date Time Temp Pulse Resp B/P Pulse Ox O2 Delivery O2 Flow Rate FiO2 09/03/16 13:12 72 16 145/76 96 Room Air 09/03/16 10:[address] Brain W/O Iv Contrast(Rout) (09/03/16 ) Ct Cerv Spine W/O Contrast (09/03/16 ) Chest, Single Ap (09/03/16 ) Lidocai-Epi 1%-1:100,000 Inj (Xylocaine- (09/03/16 12:00) Lidocai-Epi 1%-1:100,000 Inj (Xylocaine- (09/03/16 12:15) MDM Medical Decision Making Medical Screen Exam Complete: Yes Emergency Medical Condition: Yes Differential Diagnosis CVA, laceration, cephalgia, cervical spine fracture, rib fracture, pneumothorax Narrative Course Assessment and plan discussed with patient and at bedside Procedures Procedure Narrative See MARVIN Liu note Diagnosis Primary Impression: Forehead laceration Qualified Code: S01.81XA - Forehead laceration, initial encounter Additional Impression: Risk for falls Patient Instructions: General Instructions Additional Instructions: Encouraged general wound care, encouraged antibacterial soap and water 2 times per day with application of anabolic well. Suture removal 5-7 days. Follow-up with PCP. Return to emergency room with any new onset of symptoms. Encouraged to use a walker regularly. Tylenol for pain. Med/Other Pt SpecificInfo: No Meds Exist/No RX given, Wound Care Disposition: 01 DISCHARGE HOME Condition: Good Erick Sarmiento MD Sep 03, 2016 11:22
--- NOTE | 2016-09-03 11:48 | RADHPO ---
EXAM DATE/TIME: 09/03/2016 11:16 [facility] COMPARISON: CHEST SINGLE AP, August 29, 2016, 19:34. INDICATIONS : Fell, left lower anterior chest area pain MEDICAL HISTORY : Cardiovascular disease. SURGICAL HISTORY : Pacemaker. ENCOUNTER: Initial ACUITY: 1 day PAIN SCORE: 8/10 LOCATION: Left lower chest FINDINGS: Pacemaker is implanted in the left chest. Heart and pulmonary vascularity are normal. Degenerative changes are seen about the right shoulder. Total hip arthroplasty is present on the left. CONCLUSION: Negative chest for acute disease. I don't see a displaced rib fracture or pneumothorax. Dustin Bella MD FACR on September 03, 2016 at 11:37 Board Certified Radiologist. This report was verified electronically.
--- NOTE | 2016-09-03 11:50 | RADHPO ---
EXAM DATE/TIME: 09/03/2016 11:18 [facility] COMPARISON: CT BRAIN W/O CONTRAST, August 29, 2016, 20:04. INDICATIONS : Patient fell, has laceration to right forehead. RADIATION DOSE: 67.03 CTDIvol (mGy) MEDICAL HISTORY : Cardiovascular disease. DDD SURGICAL HISTORY : Sinus surgery, Back surgery. ENCOUNTER: Initial ACUITY: 1 day PAIN SCALE: 8/10 LOCATION: Right cranial TECHNIQUE: Multiple contiguous axial images were obtained of the head. Using automated exposure control and adjustment of the mA and/or kV according to patient size, radiation dose was kept as low as reasonably achievable to obtain optimal diagnostic quality images. FINDINGS: CEREBRUM: The ventricles are normal for age. No evidence of midline shift, mass lesion, hemorrha ge or acute infarction. No extra-axial fluid collections are seen. POSTERIOR FOSSA: The cerebellum and brainstem are intact. The 4th ventricle is midline. The cer ebellopontine angle is unremarkable. EXTRACRANIAL: The visualized portion of the orbits is intact. SKULL: The calvaria is intact. No evidence of skull fracture. Soft tissue swelling right fronta l bone. CONCLUSION: Negative for an acute process. Dustin Bella MD FACR on September 03, 2016 at 11:47 Board Certified Radiologist. This report was verified electronically.
[2016-09-03] MEDS ORDERED: LIDOCAINE 1%/EPINEPHrine 1:100,000 SOLN 20 ML VIAL INFIL ONE (12:00)
--- NOTE | 2016-09-03 12:14 | RADHPO ---
EXAM DATE/TIME: 09/03/2016 11:18 [facility] COMPARISON: CT CERVICAL SPINE W/O CONTRAST, August 29, 2016, 20:04. INDICATIONS : Patient fell and complains of neck pain. RADIATION DOSE: 26.78 CTDIvol (mGy) MEDICAL HISTORY : Cardiovascular disease. Degenerative disc disease. SURGICAL HISTORY : Tonsillectomy. Sinus surgery, Back surgery ENCOUNTER: Initial ACUITY: 1 day PAIN SCALE: 8/10 LOCATION: Bilateral neck TECHNIQUE: Volumetric scanning of the cervical spine was performed. Multiplanar reconstructions i n the sagittal, coronal and oblique axial planes were performed. Using automated exposure control a nd adjustment of the mA and/or kV according to patient size, radiation dose was kept as low as reason ably achievable to obtain optimal diagnostic quality images. FINDINGS: Alignment is anatomic in the sagittal and coronal projections. Degenerative changes are seen at C1 and C2. C2-C3: Moderate uncinate ridging is present with minimal facet disease. C3-C4: Moderate bilateral neural foraminal encroachment is noted worse on the right than the left wi th mild spinal stenosis. C4-C5: Moderate right-sided neural foraminal encroachment is present. There is no spinal stenosis. C5-C6: Moderate uncinate ridging is present with bilateral neural foraminal encroachment worse on th e left than the right. C6-C7: Moderate uncinate ridging is present without significant spinal stenosis. C7-T1: The bony spinal canal is normal in size. No evidence of disc bulge or herniation. The neura l foramina are bilaterally patent. CONCLUSION: Extensive degenerative changes as described above. There is exaggeration of the normal cervical lord osis. There are significant degenerative changes evident without acute fracture. Dustin Bella MD FACR on September 03, 2016 at 12:03 Board Certified Radiologist. This report was verified electronically.
[2016-09-03] MEDS ORDERED: LIDOCAINE 1%/EPINEPHrine 1:100,000 SOLN 30 ML VIAL INFIL ONE (12:15)
--- NOTE | 2016-09-03 12:46 | PD ---
Physical Exam Time Seen by Provider: 12:25 Narrative I was asked by Dr. Sarmiento to repair a laceration on this patient. Please see his note for further details. Data Data Last Documented VS Vital Signs Date Time Temp Pulse Resp B/P Pulse Ox O2 Delivery O2 Flow Rate FiO2 09/03/16 11:09 09/03/16 10:58 97.8 77 [address] Brain W/O Iv Contrast(Rout) (09/03/16 ) Ct Cerv Spine W/O Contrast (09/03/16 ) Chest, Single Ap (09/03/16 ) Lidocai-Epi 1%-1:100,000 Inj (Xylocaine- (09/03/16 12:00) Lidocai-Epi 1%-1:100,000 Inj (Xylocaine- (09/03/16 12:15) MDM Medical Record Reviewed: Yes Supervised Visit with DANDRE: Yes Procedures Procedure Narrative LACERATION LOCATION: Right eyebrow LENGTH: 3 cm NUMBER OF STITCHES/ALEXIS: 7 simple interrupted, 2 simple interrupted buried REPAIR: The area of the laceration was prepped with Betadine and sterilely draped. The laceration was infiltrated with 1% lidocaine with epinephrine. The wound was copiously irrigated and explored without evidence of foreign body , tendon injury or neurovascular injury. The wound was closed using 6-0 Prolene and 5-0 Vicryl. This was a double layer repair. A sterile dressing was applied. The patient was advised to keep the dressing clean and dry. Patient tolerated the procedure well. Italia Liu Sep 03, 2016 12:46
[2016-09-03 13:12] VITALS: BP 145/76; PULSE 72; RESP 16; O2SAT 96
== END 2016-09-03 13:59 | disposition home or self-care (01) ==
LOC: PHED 10:45
DX: S01.81XA Laceration without foreign body of other part of head, initial encounter (principal); F03.90 Unspecified dementia, unspecified severity, without behavioral disturbance, psychotic disturbance, mood disturbance, and anxiety; E78.00 Pure hypercholesterolemia, unspecified; Z91.81 History of falling; Z95.0 Presence of cardiac pacemaker; Z86.79 Personal history of other diseases of the circulatory system; Z87.39 Personal history of other diseases of the musculoskeletal system and connective tissue; Z87.19 Personal history of other diseases of the digestive system; W18.39XA Other fall on same level, initial encounter
CPT/HCPCS: 12052; 70450; 71010; 72125